=== PATIENT | female | born 1955 | race African-American/Black ===

== ENCOUNTER 2017-10-21 17:02 | Inpatient (IN) | payer MEDICARE, MEDICAID ==
[~2017-10-21 17:02] MED LIST: Heparin 10,000 UNITS/ 10 ML VIAL ONE
[2017-10-21] MEDS ORDERED: Atropine Sulfate 1 mg/10 ml Syringe ONE (17:16)
[2017-10-21] MEDS ORDERED: Calcium Gluc 4.6 MEQ/10 ML (100 MG/ML) ONE ×3 (17:24→18:04)
[2017-10-21] MEDS ORDERED: Ondansetron ODT 4 MG TAB ONE (17:30)
[2017-10-21] MEDS ORDERED: Insulin Regular 300 UNITS/3 ML VIAL ONE (17:31)
[2017-10-21] MEDS ORDERED: Dextrose 50% Abboject 50 ML SYRINGE ONE (17:31)
[2017-10-21] MEDS ORDERED: Sodium Bicarb 50 MEQ/50 ML Abboject 8.4% SYRINGE ONE (17:31)
[2017-10-21] MEDS ORDERED: Albuterol Sulfate 2.5 mg/0.5 ml Neb ONE (17:34)
[2017-10-21 17:36] LABS: Hemoglobin 12.7 g/dL (12.0-16.0); Mean Corpuscular HGB CONC 32.4 g/dL (32.0-36.0); Mean Corpuscular Hemoglobin 29.7 pg (27.0-31.0); Mean Corpuscular Volume 91.7 fl (81.0-99.0); Mean Platelet Volume 11.2 fL (7.4-10.4); Platelet Count 180 thou/uL (130-400); RBC Distribution Width 11.7 % (11.5-14.5); Red Blood Cell (RBC) Count 4.28 mill/uL (4.20-5.40); White Blood Cell (WBC) Count 12.1 thou/uL (4.8-10.8)
[2017-10-21 17:48] LABS: #Eosinphils 0.1 thou/uL (0.0-0.7); #Lymphocytes 1.6 thou/uL (1.20-3.40); #Monocytes 0.7 thou/uL (0.11-0.59); #Neutrophils 9.8 thou/uL (1.40-6.50); %Basophils 0.1 % (0.0-1.0); %Eosinophils 0.7 % (0.0-10.0); %Lymphocytes 12.9 % (21.0-51.0); %Monocytes 5.8 % (0.0-10.0); %Neutrophils 80.5 % (42.0-75.0); PLT Morphology Comment Appears Adequate; RBC Morphology Normal
[2017-10-21 17:50] LABS: Analyzer IN Cardio ER; pH (venous) 7.38 (7.35-7.45)
[2017-10-21 17:51] LABS: Actual Bicarbonate (HCO3v) 17 mEq/L (22-26); Base Excess -6.7 mEq/L (0 (+/- 2.5)); Chloride (ABG LAB) 103 mmol/L (98-106); Hematocrit-VBG 36.7 % (35-47); Hemoglobin (Hb) 11.3 g/dL (11.7-16.0); Potassium - ABG Lab 8.8 mmol/L (3.70-5.30); Sodium 131.9 mmol/L (133-146)
[2017-10-21 17:55] LABS: CKMB 0.6 ng/mL (0-6.6); Troponin I Less than 0.010 ng/mL (< 0.028)
[2017-10-21] MEDS ORDERED: Acetaminophen 325 MG TAB PO PRN (18:51)
[2017-10-21] MEDS ORDERED: Acetaminophen 650 MG Suppository PR PRN (18:51)
[2017-10-21 18:57] LABS: Albumin 3.6 g/dL (3.4-4.8)
[2017-10-21 18:58] LABS: Chloride 113 mmol/L (98-107); Sodium 138 mmol/L (136-145)
[2017-10-21 18:59] LABS: Calcium 10.3 mg/dL (7.8-10.44); Glucose 89 mg/dL (80-115)
[2017-10-21 19:00] LABS: Globulin 3.1 g/dL (2.4-3.5); Protein, Total 6.7 g/dL (6.0-8.3)
[2017-10-21 19:01] LABS: Anion Gap 16 mmol/L (10-20); Bilirubin, Total 0.3 mg/dL (0.2-1.2); Carbon Dioxide 16 mmol/L (23-31)
[2017-10-21 19:02] LABS: Alkaline Phosphatase 93 U/L (40-150)
[2017-10-21 19:03] LABS: Calc. Creatinine Clearance 0 mL/min (70-130); Estimated GFR-MDRD 20
[2017-10-21 19:04] LABS: BUN (Urea Nitrogen) 70 mg/dL (9.8-20.1)
[2017-10-21 19:05] LABS: ALT (SGPT) 19 U/L (8-55); AST (SGOT) 14 U/L (5-34); CK (CPK) 59 U/L (29-168)
[2017-10-21 19:07] LABS: Potassium 6.8 mmol/L (3.5-5.1)
[2017-10-21] MEDS ORDERED: Albuterol Sulfate 2.5 mg/3 ml Neb ONE (19:10)
[2017-10-21] MEDS ORDERED: Dextrose 5% in Water 1,000 ML IV PRN (19:16)
[2017-10-21] MEDS ORDERED: Dextrose 50% Abboject 50 ML SYRINGE SLOW IVP PRN (19:16)
[2017-10-21 19:30] LABS: Troponin I Less than 0.010 ng/mL (< 0.028)
--- NOTE | 2017-10-21 20:04 | RAD ---
AP VIEW OF THE CHEST: 10/21/17 INDICATION: Generalized weakness. COMPARISON: Prior exam dated 09/16/07. FINDINGS: There are vascular calcifications involving the aortic arch. Heart size is normal. The lungs are joaquin r. Pacer pads overlie the right chest wall. No pleural effusion or pneumothorax is evident. No defini te acute osseous abnormality is noted. IMPRESSION: No acute abnormality. POS: [facility]
--- NOTE | 2017-10-21 20:41 | HP ---
PRIMARY CARE PROVIDER: Barrera Metcalf M.D. CHIEF COMPLAINT: Generalized weakness. HISTORY OF PRESENT ILLNESS: Ms. Donahue is a pleasant 62-year-old lady who was seen at [facility] on 10/21/2017. She is accompanied by her daughter in the emergency room. She reports that she has been constipated for a few days. She also reports that she has not been eating well for the last few days. Today morning, she woke up, feeling weak all over her body. She denies any lightheadedness or, palpitations. She denies any chest pain, nausea, and vomiting. REVIEW OF SYSTEMS: The following complete review of systems was negative, unless otherwise mentioned in the HPI or below: Constitutional: Weight loss or gain, ability to conduct usual activities. Skin: Rash, itching. Eyes: Double vision, pain. ENT/Mouth: Nose bleeding, neck stiffness, pain, tenderness. Cardiovascular: Palpitations, dyspnea on exertion, orthopnea. Respiratory: Shortness of breath, wheezing, cough, hemoptysis, fever or night sweats. Gastrointestinal: Poor appetite, abdominal pain, heartburn, nausea, vomiting, constipation, or diarrhea. Genitourinary: Urgency, frequency, dysuria, nocturia. Musculoskeletal: Pain, swelling. Neurologic/Psychiatric: Anxiety, depression. Allergy/Immunologic: Skin rash, bleeding tendency. PAST MEDICAL HISTORY: Significant for diabetes mellitus, hypertension, hemorrhagic cerebrovascular accident and hepatitis C. She reports that she had a normal coronary angiogram approximately 1 year ago. PAST SURGICAL HISTORY: None. SOCIAL HISTORY: The patient denies any tobacco use, alcohol use or recreational drug use. ALLERGIES: No known drug allergies. CURRENT MEDICATIONS: Include amlodipine 10 mg daily, aspirin 325 mg daily, Coreg 25 mg 2 times a day, clonidine 0.1 mg every 6 hours as needed, furosemide 20 mg daily, potassium chloride 10 mEq daily, Budeprion SR 150 mg daily; methimazole 10 mg on alternate days, alternating with 5 mg; lisinopril/ hydrochlorothiazide 20/25 mg daily, spironolactone 50 mg daily and meloxicam 7.5 mg daily. FAMILY HISTORY: Patient denies any family history of premature coronary artery disease or renal failure. PHYSICAL EXAMINATION: GENERAL: Ms. Donahue is awake and alert, not in acute distress. VITAL SIGNS: Blood pressure is 114/45, pulse is 43. She is breathing at rate of 20 and saturating 99% on room air. She is afebrile. EYES: No scleral icterus. No clinical pallor. ENT: Moist mucosal membranes, no oropharyngeal erythema or exudates. NECK: Supple, nontender, normal range of movement, trachea is midline. RESPIRATORY: Accessory muscles of breathing are not active. Chest wall movements are symmetric bilaterally. LUNGS: Clear to auscultation without wheeze, rhonchi or crepitations. CARDIOVASCULAR: S1 and S2 are heard, regular. LUNGS: Bradycardic. Peripheral pulses are palpable. No carotid bruit, no pericardial rub. ABDOMEN: Soft, nontender, bowel sounds are heard, no hepatomegaly, no splenomegaly. NEUROLOGIC: Cranial nerves II-XII intact. Deep tendon reflexes are 2+. MUSCULOSKELETAL: Power is 5/5 in all 4 extremities. Normal range of movement at all major extremity joints. LYMPHATIC: No cervical lymphadenopathy. SKIN: No rashes or subcutaneous nodules. PSYCHIATRIC: Normal mood, normal affect. The patient is oriented to person, place, and time. LABORATORY DATA: Ms. Donahue's labs and investigations were reviewed. I reviewed her electrocardiogram, which shows sinus bradycardia, with a heart rate of 45 beats per minute. I also reviewed her chest x-ray, which does not show any pulmonary infiltrates. Through point of care testing, her potassium is 8.8. Emergency room physician reports that her creatinine is 3, but I am unable to find the document indicating this. Comprehensive metabolic profile done through lab is pending. She has leukocytosis with 12,100 white cells, of which 80% are neutrophils, normal hemoglobin and normal platelet count. ASSESSMENT AND PLAN: Ms. Donahue is a pleasant 62-year-old lady who was seen at [facility] on 10/21/2017. Her problem list includes: 1. Generalized weakness: Most likely secondary to hyperkalemia. 2. Hyperkalemia: Due to combination of factors, including poor oral intake and use of lisinopril, spironolactone and potassium supplements. Nephrology service has been consulted by emergency room physician. Arrangements are being made for placement of dialysis catheter and for emergent dialysis. Patient will be subsequently admitted to the Critical Care Unit. 3. Sinus bradycardia: Likely a combination of beta yosvany use as well as hyperkalemia: Hold beta yosvany, dialyze and monitor on telemetry. 4. Hypertension: Monitor vital signs, titrate antihypertensives as needed. 5. Diabetes mellitus. Accu-Cheks, insulin sliding scale. 6. History of hepatitis C: Stable. 7. History of hemorrhagic cerebrovascular accident. Stable, SCDs for DVT prophylaxis. Many thanks for allowing me to participate in your patient's care. Please feel free to contact me with any questions or concerns. LEVEL OF RISK: High. LEVEL OF COMPLEXITY: High. MTDD
[2017-10-21] MEDS ORDERED: Heparin 5,000 UNITS/ML VIAL SC SCH (21:00)
[2017-10-21 21:54] VITALS: BMI 31.1
[2017-10-21 22:25] LABS: Troponin I Less than 0.010 ng/mL (< 0.028)
[2017-10-21 22:42] LABS: HBSAg Index 0.21 S/CO (0-0.99); Hep B Surf Ag Non-Reactive S/CO (NonReactive)
--- NOTE | 2017-10-21 22:55 | OP ---
CHIEF COMPLAINT: Acute renal failure, in need of dialysis for hyperkalemia. SURGEON: Dr. Vidal. PROCEDURE PERFORMED: Trialysis catheter placement. PROCEDURE: After informed consent was obtained, the patient was placed in supine position. Her groi n was prepped and draped in usual fashion. Local anesthesia infiltrated subcutaneously and deep. An introducer needle was inserted into the right femoral vein with good backflow of venous blood. J-wi re threaded easily. The skin was incised with a 11 blade and a series of dilators used to enlarge th e tunnel. Then the dialysis catheter was inserted over the wire and the wire was removed. Each of t he ports was flushed with saline and clamped. The catheter was sutured in place with 3-0 nylon sutur e. Sterile bandage applied. The patient tolerated the procedure well and then will be taken to dial ysis.
--- NOTE | 2017-10-21 23:52 | CON ---
DATE OF CONSULTATION: 10/21/2017 CHIEF COMPLAINT: Acute renal failure. HISTORY: The patient is a 62-year-old female who has diabetes, was on some oral agents. She has had progressive weakness and dizziness. She was found to be severely bradycardic and had her potassium of 9.4. I was asked to see her for dialysis placement. PAST MEDICAL HISTORY: Significant for hypertension and diabetes. PAST SURGICAL HISTORY: She had a heart catheterization last year. HOME MEDICATIONS: They do no know. ALLERGIES: No known drug allergies. SOCIAL HISTORY: She lives alone. No tobacco or alcohol. No known drug allergies. PHYSICAL EXAMINATION: VITAL SIGNS: Pulse is 38, blood pressure 113/64. GENERAL: She is awake. She looks a little bit lethargic, in no apparent distress. HEENT: Otherwise, unremarkable. She is alopecic. LUNGS: Clear. HEART: Regular rate and rhythm. ABDOMEN: Morbidly obese, soft, nontender. EXTREMITIES: Unremarkable. LABORATORY AND X-RAY FINDINGS: White count 12, H and H 12 and 39, and platelet count 180. Her potas sium was 8.8. Sodium 131, chloride 103 now they did get it down to 6.8 with some fluids. Her BUN is 70 with a creatinine of 2.8, glucose is 234. ASSESSMENT: Acute renal failure with hyperkalemia. PLAN: Trialysis catheter placement for urgent dialysis.
[2017-10-22 01:20] LABS: Troponin I 0.018 ng/mL (< 0.028)
[2017-10-22] MEDS ORDERED: Sodium Chloride 0.9% 1,000 ML IV SCH (03:22)
[2017-10-22] MEDS ORDERED: Ondansetron HCl/PF 4 MG/2 ML Vial IVP PRN (03:22)
[2017-10-22] MEDS ORDERED: Ondansetron ODT 4 MG TAB SL PRN (03:22)
[2017-10-22 05:47] LABS: #Eosinphils 0.1 thou/uL (0.0-0.7); #Lymphocytes 1.9 thou/uL (1.20-3.40); #Monocytes 1.3 thou/uL (0.11-0.59); #Neutrophils 6.5 thou/uL (1.40-6.50); %Basophils 0.3 % (0.0-1.0); %Eosinophils 0.6 % (0.0-10.0); %Lymphocytes 19.4 % (21.0-51.0); %Monocytes 13.4 % (0.0-10.0); %Neutrophils 66.3 % (42.0-75.0); Hemoglobin 10.4 g/dL (12.0-16.0); Mean Corpuscular HGB CONC 33.2 g/dL (32.0-36.0); Mean Corpuscular Hemoglobin 29.9 pg (27.0-31.0); Mean Corpuscular Volume 89.9 fl (81.0-99.0); Mean Platelet Volume 11.2 fL (7.4-10.4); Platelet Count 25 thou/uL (130-400); RBC Distribution Width 11.5 % (11.5-14.5); Red Blood Cell (RBC) Count 3.47 mill/uL (4.20-5.40); White Blood Cell (WBC) Count 9.8 thou/uL (4.8-10.8)
[2017-10-22 05:49] LABS: Anion Gap 7 mmol/L (10-20); BUN (Urea Nitrogen) 27 mg/dL (9.8-20.1); Calc. Creatinine Clearance 47 mL/min (70-130); Calcium 8.8 mg/dL (7.8-10.44); Carbon Dioxide 29 mmol/L (23-31); Chloride 104 mmol/L (98-107); Estimated GFR-MDRD 35; Glucose 123 mg/dL (80-115); Sodium 136 mmol/L (136-145)
[2017-10-22 09:18] LABS: Anion Gap 12 mmol/L (10-20); BUN (Urea Nitrogen) 28 mg/dL (9.8-20.1); Calc. Creatinine Clearance 46 mL/min (70-130); Calcium 8.5 mg/dL (7.8-10.44); Carbon Dioxide 26 mmol/L (23-31); Chloride 105 mmol/L (98-107); Estimated GFR-MDRD 34; Glucose 90 mg/dL (80-115); Magnesium 1.8 mg/dL (1.6-2.6); Phosphorus 3.9 mg/dL (2.3-4.7); Sodium 138 mmol/L (136-145)
[2017-10-22 09:22] LABS: #Eosinphils 0.1 thou/uL (0.0-0.7); #Lymphocytes 1.7 thou/uL (1.20-3.40); #Monocytes 0.9 thou/uL (0.11-0.59); #Neutrophils 5.8 thou/uL (1.40-6.50); %Lymphocytes 19.8 % (21.0-51.0); %Monocytes 10.2 % (0.0-10.0); Hemoglobin 11.1 g/dL (12.0-16.0); Mean Corpuscular Hemoglobin 30.7 pg (27.0-31.0); Mean Corpuscular Volume 90.5 fl (81.0-99.0); Mean Platelet Volume 10.6 fL (7.4-10.4); PLT Morphology Comment Appears Decreased; Platelet Count 27 thou/uL (130-400); RBC Distribution Width 11.6 % (11.5-14.5); Red Blood Cell (RBC) Count 3.61 mill/uL (4.20-5.40); White Blood Cell (WBC) Count 8.4 thou/uL (4.8-10.8)
[2017-10-22] MEDS: Albuterol Sulfate 1.25 MG/3 ML NEB NEB SCH ×2 (09:25→09:26)
[2017-10-22] MEDS: Sodium Chloride 0.45% 1,000 ML IV SCH ×2 (12:04→17:10)
[2017-10-22] MEDS: HumaLOG 300 UNITS/3 ML VIAL SC PRN ×2 (12:34→21:14)
--- NOTE | 2017-10-22 12:40 | PDOC.PN ---
- Subjective Encounter Start Date: 10/22/17 Encounter Start Time: 08:40 Pt seen for followup re: thrombocytopenia. Feels better. denies chest pain, shortness of breath, fevers or chills. - Objective MAR Reviewed: Yes Vital Signs & Weight: Vital Signs (12 hours) Temp Pulse Resp Pulse Ox 10/22/17 08:00 97.8 F 69 21 H 100 10/22/17 07:00 97.8 F Most Recent Monitor Data Heart Rate from ECG 63 NIBP 116/26 NIBP BP-Mean 70 Respiration from ECG 19 SpO2 99 I&O: 10/21/17 10/22/17 10/23/17 06:59 06:59 06:59 Intake Total 1375 240 Output Total 100 Balance 1375 140 Result Diagrams: 10/22/17 08:50 10/22/17 08:50 Additional Labs: Accuchecks 10/21/17 10/21/17 22:42 19:37 POC Glucose 104 70 EKG Reviewed by me: Yes (Tele: NSR) Phys Exam - Physical Examination Obese HEENT: PERRLA, moist MMs, sclera anicteric, oral pharynx no lesions Neck: no nodes, no JVD, supple, full ROM Respiratory: no wheezing, no rales, no rhonchi, clear to auscultation bilateral Cardiovascular: RRR, no rub Gastrointestinal: soft, non-tender, no distention, positive bowel sounds Neurological: moves all 4 limbs Psychiatric: normal affect, A&O x 3 Dx/Plan (1) Thrombocytopenia Code(s): D69.6 - THROMBOCYTOPENIA, UNSPECIFIED Status: Acute Comment: Etiology unclear, HIT panel pending. No evidence of active bleeding. (2) CHINO (acute kidney injury) Code(s): N17.9 - ACUTE KIDNEY FAILURE, UNSPECIFIED Status: Acute Comment: s/ p dialysis yesterday (for hyperkalemia), improving. (3) HTN (hypertension) Code(s): I10 - ESSENTIAL (PRIMARY) HYPERTENSION Status: Chronic Comment: Monitor vital signs, titrate antihypertensives as needed. (4) DM2 (diabetes mellitus, type 2) Status: Chronic Comment: Continue accuchecks, insulin sliding scale. (5) Bradycardia Code(s): R00.1 - BRADYCARDIA, UNSPECIFIED Status: Resolved Comment: Likely due to hyperkalemia (6) Hyperkalemia Code(s): E87.5 - HYPERKALEMIA Status: Resolved Comment: s/p dialysis (7) Generalized weakness Code(s): R53.1 - WEAKNESS Status: Resolved - Plan * . Review of Systems - Review of Systems Constitutional: negative: fever, chills, sweats, weakness, malaise Respiratory: negative: Cough, Shortness of Breath, SOB with Excertion, Pleuritic Pain, Wheezing Cardiovascular: negative: chest pain, palpitations, orthopnea, paroxysmal nocturnal dyspnea, edema, light headedness Gastrointestinal: negative: Nausea, Vomiting, Abdominal Pain, Diarrhea, Constipation, Melena, Hematochezia Genitourinary: negative: Dysuria, Frequency, Incontinence, Hematuria, Retention - Medications/Allergies Allergies/Adverse Reactions: Allergies Allergy/AdvReac Type Severity Reaction Status Date / Time No Known Drug Allergies Allergy Verified 10/21/17 18:34 Medications: Current Medications Acetaminophen (Tylenol) 650 mg PO Q4H PRN PRN Reason: Headache/Fever or Pain Last Admin: 10/21/17 23:18 Dose: 650 mg Acetaminophen (Tylenol) 650 mg MI Q4H PRN PRN Reason: Headache/Fever or Pain Dextrose/Water (Dextrose 50%) 25 gm SLOW IVP PRN PRN PRN Reason: Hypoglycemia Glucagon (Glucagon) 1 mg IM PRN PRN PRN Reason: Hypoglycemia Dextrose/Water (D5w) 1,000 mls @ 0 mls/hr IV .Q0M PRN; As Directed PRN Reason: Hypoglycemia Last Admin: 10/21/17 23:55 Dose: 1,000 mls Sodium Chloride (1/2 Normal Saline) 1,000 mls @ 100 mls/hr IV .Q10H GONZALES Last Admin: 10/22/17 12:04 Dose: 1,000 mls Insulin Human Lispro (Humalog) 0 units SC .MILD SLIDING SCALE PRN PRN Reason: Mild Correctional Scale Last Admin: 10/22/17 12:34 Dose: 2 unit Sodium Chloride (Flush - Normal Saline) 10 ml IVF Q12HR GONZALES Last Admin: 10/22/17 09:00 Dose: 10 ml Sodium Chloride (Flush - Normal Saline) 10 ml IVF PRN PRN PRN Reason: Saline Flush
--- NOTE | 2017-10-22 13:06 | CON ---
DATE OF CONSULTATION: 10/21/2017 REFERRING PHYSICIAN: Dr. Resendiz. REASON FOR CONSULTATION: Hyperkalemia. REASON FOR ADMISSION: Weakness. HISTORY OF PRESENT ILLNESS: This is a 62-year-old female with a history of diabetes, hypertension, CVA, came to the hospital with weakness and found to have potassium of around 9 range, which got better to 6.8. Nephrology consulted. Plan is to have emergent dialysis. Patient complains of lot of weakness, but no nausea, vomiting, no chest pain. PAST MEDICAL HISTORY: Positive for type 2 diabetes, hypertension, CVA. PAST SURGICAL HISTORY: None. HOME MEDICATIONS: Amlodipine, aspirin, Coreg, clonidine, furosemide, potassium chloride, methimazole, lisinopril/hydrochlorothiazide, spironolactone, meloxicam. ALLERGIES: No known drug allergies. SOCIAL HISTORY: No smoking, no alcohol or illicit drug abuse. FAMILY HISTORY: No history of kidney disease. REVIEW OF SYSTEMS: The following complete review of systems was negative, unless otherwise mentioned in the HPI or below Constitutional: Weight loss or gain, ability to conduct usual activities. Skin: Rash, itching. Eyes: Double vision, pain. Ent/mouth: Nose bleeding, neck stiffness, pain, tenderness. Cardiovascular: Palpitations, dyspnea on exertion, orthopnea. Respiratory: Shortness of breath, wheezing, cough, hemoptysis, fever or night sweats. Gastrointestinal: Poor appetite, abdominal pain, heartburn, nausea,vomiting, constipation, or diarrhea. Genitourinary: Urgency, frequency, dysuria, nocturia. Musculoskeletal: Pain, swelling. Neurologic/psychiatric: Anxiety, depression. Allergy/immunologic: Skin rash, bleeding tendency. PHYSICAL EXAMINATION: GENERAL: This is a well-built female in no apparent distress. VITAL SIGNS: Temperature 97.8, pulse 65, respiratory rate 18, blood pressure 120/65. HEENT: Atraumatic, normocephalic. Oral mucosa is moist. NECK: Supple. CARDIOVASCULAR: S1 and S2 heard. Rate and rhythm regular. RESPIRATORY: Clear. ABDOMEN: Soft. MUSCULOSKELETAL: A 1+ edema. DERMATOLOGIC: No rash. NEUROLOGIC: Alert, awake. PSYCHIATRIC: Mood and affect normal. LABORATORY DATA: Hemoglobin is 10.4. Potassium was 8.8, BUN is 70, and creatinine is 2.83. ASSESSMENT AND PLAN: 1. Acute hyperkalemia, most likely from medications. Plan is to have emergent dialysis. Appreciate help from Surgery. 2. Acute kidney injury, most likely volume depletion. Agree with hydration as tolerated. 3. Anemia. 4. Edema, controlled. 5. Hypertension, stable. Plan is to have emergent dialysis, appreciate help from Surgery. We will follow. Thank you for the consult. NEVIN
--- NOTE | 2017-10-22 15:52 | CON ---
DATE OF CONSULTATION: 10/22/2017 HISTORY OF PRESENT ILLNESS: Kaylee Donahue is a 62-year-old -[place] female, who sees Morgan Becerril doctor. She is 93 kilos, presented to the ER with respiratory rate 20 and temperature 97, a pparently adequate sats, complain of being weak. She has nausea for several days. She had a BM. On arrival to the ER, EKG showed a third-degree AV block and potassium that was elevated to apparently 8.5. Primary care physician contacted dialysis and she was dialyzed yesterday. Shortly after dialys is, I was told that her third-degree AV block converted back to normal sinus rhythm. This morning, h er pulse is 68, blood pressure 116/56, sats 100% on 2 liters on 18. She denies any pain or discomf ort. She tells me that she has been feeling poorly for several days. She is a former smoker, a pack a day, quit smoking 2 years ago. She has been having some problem with her low back; in fact, she s aw her primary care doctor and was scheduled to have an MRI of her lumbar spine done today. PAST MEDICAL HISTORY: Otherwise, pertinent for diabetes, hypertension, renal failure, hepatitis C, p revious CVA with right-sided weakness. PAST SURGICAL HISTORY: Access. ALCOHOL: None. MEDICATIONS: A list of medicines from home list is unknown. Her family to bring the medicines. REVIEW OF SYSTEMS: Otherwise, 10-point negative. PHYSICAL EXAMINATION: GENERAL: She is awake, alert, responsive, in no distress. VITAL SIGNS: Sats 100% is noted on 2 liters, respirations 20, blood pressure 116/55, pulse 69 and no rmal sinus. CHEST: Decreased breath sounds without any wheezing. CARDIAC: Normal S1 and S2, no gallops. ABDOMEN: Soft. NEUROLOGIC: She is awake, alert, responsive. Paralysis of the right side, chronic. EXTREMITIES: No edema. LABORATORY DATA: A platelet count this morning is 25,000; yesterday was 180, very unusual. Addition ally, white count is 9.8, H and H 10 and 31. BUN and creatinine are 27 and 1.6, potassium is 4 follo wing 1 dialysis. Her BUN and creatinine yesterday was 70 and 2.8 respectively, suggesting mainly of a prerenal component. Hepatitis B antigen pending. IMPRESSION: 1. Admission potassium 8.8, very unusual without evidence of prerenal azotemia. 2. Chronic renal failure. 3. Cerebrovascular accident, right-sided weakness. 4. Chronic back pain. 5. Hepatitis C. 6. Former smoker. 7. Diabetes. I am surprised about the events that her potassium was 8.5 and her numbers all appear to be prerenal. I will continue hydration. She has had low back pain. She was scheduled to have an MRI done at [facility]. I suggest she be transferred out of the ICU to a monitored bed, can have an MRI at a later time. Await input from Cardiology. Pulmonary Critical care will follow while in the ICU. This is a consultation note of 70 minutes, more than 50% in direct patient care.
--- NOTE | 2017-10-22 16:51 | CON ---
DATE OF CONSULTATION: 10/22/2017 CRITICAL CARE NOTE TIME: 30 minutes. HISTORY OF PRESENT ILLNESS: Patient is an unfortunate 62-year-old woman who presented after presenting with severe weakness. The patient had been feeling weak for several days. She presented to the emergency room and was noted to be in a very slow heart rate. The patient has a previous history of a CVA. She also has a long history of hypertension. The patient denied having any chest pain. She was noted to have a very slow heart rate and admitted for further evaluation. The patient denies having any chest discomfort. PAST MEDICAL HISTORY: 1. Hypertension 2. Cerebrovascular accident. 3. Renal failure. 4. Hepatitis C. PAST SURGICAL HISTORY: Cataract surgery. SOCIAL HISTORY: Former smoker. ALLERGIES: No known drug allergies. MEDICATIONS ON ADMISSION: Norvasc 10 daily, aspirin tablet every day, Coreg 25 b.i.d., potassium 10 daily, lisinopril 20/25 daily, spironolactone 1 tablet daily, meloxicam, Lasix, and clonidine. PHYSICAL EXAMINATION: GENERAL: This is an ill-appearing woman. VITAL SIGNS: Blood pressure was 116/26. NECK: Full. LUNGS: Clear to auscultation. HEART: Regular rate and rhythm, normal S1, S2, no murmurs. ABDOMEN: Nondistended. EXTREMITIES: Showed trace edema. LABORATORY DATA AND IMAGING DATA: White blood cell count 8.4, hemoglobin 11.1, hematocrit 32.6, and platelets are 27. Her initial laboratory results; sodium was 138, potassium was 8.8, chloride 113, BUN 70, creatinine is 0.283, troponin less than 0.01. EKG revealed a junctional escape rhythm with rate of approximately 40. IMPRESSION: 1. Sinus arrest with junctional escape rhythm. 2. Hyperkalemia. 3. Renal failure. 4. History of cerebrovascular accident. 5. History of hepatitis C. 6. Thrombocytopenia. This patient presented with sinus arrest with a junctional escape rhythm due to severe hyperkalemia. From a cardiac standpoint, the patient underwent emergent dialysis. She is now back in sinus rhythm. We will check the patient's echocardiogram. The patient will need to avoid taking AIRAM inhibitor therapy and spironolactone. We will readjust her antihypertensive medications. We will check the patient's echocardiogram. We will follow this patient with you through her hospitalization. Critical care note 30 minutes. MTDD
--- NOTE | 2017-10-22 19:50 | PRG ---
DATE OF SERVICE: 10/22/2017 NEPHROLOGY PROGRESS NOTE SUBJECTIVE: Patient was seen and examined at bedside and overnight events noted. Patient denies any shortness of breath or chest pain or palpitation. No history of nausea or vomiting or diarrhea or f ever or chills or cramps. OBJECTIVE: GENERAL: This is an elderly female in no apparent distress. VITAL SIGNS: Temperature 98.1, pulse 72, respiratory rate 18, blood pressure 120/71. HEENT: Atraumatic, normocephalic. Oral mucosa is moist. NECK: Supple. CARDIOVASCULAR: S1, S2 heard. Rate and rhythm regular. RESPIRATORY: Clear to auscultation. GASTROINTESTINAL: Abdomen is soft. MUSCULOSKELETAL: No tenderness. No edema. DERMATOLOGIC: No skin rash. NEUROLOGIC: Alert and awake and oriented x3. No focal neurologic deficits. Moving all the extremiti es. PSYCHIATRIC: Mood and affect normal. LABORATORY DATA: Potassium is 4.0, BUN 27, creatinine is 1.76. ASSESSMENT AND PLAN: 1. Acute hyperkalemia, much better with dialysis. Stop potassium supplements and diuretics. 2. Acute kidney injury. Agree with IV fluids. Would recommend NS if possible. Creatinine is much better after dialysis. 3. Anemia, rule out any bleed. 4. Edema, controlled. 5. Hypertension, stable. 6. No acute indication for dialysis today. We will continue to monitor and remove dialysis catheter if no more dialysis needed and avoid nephrotoxins at this point. Continue supportive care. Her debbie arzate creatinine is around 1.5. We will follow.
[2017-10-23] MEDS: Sodium Chloride 0.45% 1,000 ML IV SCH (04:55)
[2017-10-23 05:34] LABS: #Eosinphils 0.1 thou/uL (0.0-0.7); #Lymphocytes 1.6 thou/uL (1.20-3.40); #Monocytes 0.7 thou/uL (0.11-0.59); #Neutrophils 3.2 thou/uL (1.40-6.50); %Basophils 0.2 % (0.0-1.0); %Eosinophils 2.4 % (0.0-10.0); %Lymphocytes 28.1 % (21.0-51.0); %Monocytes 11.9 % (0.0-10.0); %Neutrophils 57.5 % (42.0-75.0); Hemoglobin 9.9 g/dL (12.0-16.0); Mean Corpuscular HGB CONC 32.6 g/dL (32.0-36.0); Mean Corpuscular Volume 92.2 fl (81.0-99.0); Mean Platelet Volume 11.7 fL (7.4-10.4); Platelet Count 30 thou/uL (130-400); RBC Distribution Width 11.5 % (11.5-14.5); Red Blood Cell (RBC) Count 3.29 mill/uL (4.20-5.40); White Blood Cell (WBC) Count 5.6 thou/uL (4.8-10.8)
[2017-10-23 05:45] LABS: Anion Gap 11 mmol/L (10-20); BUN (Urea Nitrogen) 28 mg/dL (9.8-20.1); Calc. Creatinine Clearance 51 mL/min (70-130); Calcium 8.3 mg/dL (7.8-10.44); Carbon Dioxide 23 mmol/L (23-31); Chloride 107 mmol/L (98-107); Estimated GFR-MDRD 39; Glucose 83 mg/dL (80-115); Potassium 4.9 mmol/L (3.5-5.1); Sodium 136 mmol/L (136-145)
--- NOTE | 2017-10-23 11:35 | PRG ---
DATE OF SERVICE: 10/23/2017 SUBJECTIVE: This morning, awake, responsive, in no distress. OBJECTIVE: VITAL SIGNS: Blood pressure is 121/45, pulse 58, and respirations 18. CHEST: Reveal decreased breath sounds, no wheezing. CARDIAC: Normal S1 and S2, no gallops. ABDOMEN: Soft, no masses. LABORATORY DATA: White count 5.6, H and H 9 and 30, and platelet count is low at 30,000. Creatinine 1.6, BUN is 28. IMPRESSION: 1. Status post complete heart block with a normal ejection fraction. 2. Mild renal failure with a GFR of 39, creatinine 1.62, normal potassium. 3. Emergency dialysis for hyperkalemia. Therefore, hepatitis C probably accounting for the chronic thrombocytopenia. PLAN: At this stage, nothing additional to offer. Continue aggressive PT. She can be probably dahl sferred out of the ICU.
--- NOTE | 2017-10-23 11:36 | PRG ---
DATE OF SERVICE: 10/23/2017 NEPHROLOGY PROGRESS NOTE SUBJECTIVE: Patient was seen and examined at bedside and overnight events noted. Patient denies any shortness of breath or chest pain or palpitation. No history of nausea or vomiting or diarrhea or f ever or chills or cramps. OBJECTIVE: GENERAL: This is an elderly female in no apparent distress. VITAL SIGNS: Temperature 98.4, pulse 83, respiratory rate 16, blood pressure 133/70. HEENT: Atraumatic, normocephalic. Oral mucosa is moist. NECK: Supple. CARDIOVASCULAR: S1, S2 heard. Rate and rhythm regular. RESPIRATORY: Clear to auscultation. GASTROINTESTINAL: Abdomen is soft. MUSCULOSKELETAL: No tenderness. No edema. DERMATOLOGIC: No skin rash. NEUROLOGIC: Alert and awake and oriented x3. No focal neurologic deficits. Moving all the extremiti es. PSYCHIATRIC: Mood and affect normal. LABORATORY DATA: Potassium is 4.9, BUN 28, creatinine is 1.6. ASSESSMENT AND PLAN: 1. Acute kidney injury. Renal function is better. 2. Chronic kidney stage III. 3. Acute hyperkalemia, much better. 4. Anemia. 5. Edema. 6. Hypertension. Overall, labs are stable, okay to remove dialysis catheter. Seems urine output is better. No need f or dialysis.
--- NOTE | 2017-10-23 14:29 | PDOC.PN ---
- Subjective Encounter Start Date: 10/23/17 Encounter Start Time: 12:10 Subjective: awake, sitting in chair -: no sob or palp -: no bleeding per rectum or urine - Objective MAR Reviewed: Yes Vital Signs & Weight: Vital Signs (12 hours) Temp Pulse Pulse Pulse Resp BP BP 10/23/17 12:00 98.7 F 10/23/17 10:07 83 76 113/70 139/61 10/23/17 08:00 98.4 F 68 16 10/23/17 07:09 10/23/17 04:00 98.3 F Pulse Ox Pulse Ox Pulse Ox 10/23/17 12:00 10/23/17 10:07 99 99 10/23/17 08:00 99 10/23/17 07:09 98 10/23/17 04:00 Most Recent Monitor Data Heart Rate from ECG 75 NIBP 123/59 NIBP BP-Mean 83 Respiration from ECG 17 SpO2 100 I&O: 10/22/17 10/23/17 10/24/17 06:59 06:59 06:59 Intake Total 1375 1667 640 Output Total 1200 500 Balance 1375 467 140 Result Diagrams: 10/23/17 05:08 10/23/17 05:08 Additional Labs: Accuchecks 10/23/17 10/22/17 10/22/17 12:18 21:14 17:11 POC Glucose 139 H 214 H 92 Phys Exam - Physical Examination HEENT: PERRLA, moist MMs Neck: no JVD, supple Respiratory: no wheezing, no rales Cardiovascular: RRR, no significant murmur Gastrointestinal: soft, non-tender, positive bowel sounds Musculoskeletal: no edema, pulses present Neurological: moves all 4 limbs h/o cva with mild right hemiparesis with strength 4/5 Psychiatric: normal affect, A&O x 3 Dx/Plan (1) CHINO (acute kidney injury) Code(s): N17.9 - ACUTE KIDNEY FAILURE, UNSPECIFIED Status: Acute (2) Thrombocytopenia Code(s): D69.6 - THROMBOCYTOPENIA, UNSPECIFIED Status: Acute Comment: Etiology unclear, HIT panel pending. No evidence of active bleeding. (3) H/O: CVA (cerebrovascular accident) Code(s): Z86.73 - PRSNL HX OF TIA (TIA), AND CEREB INFRC W/O RESID DEFICITS Status: Chronic Comment: with very mild right hemiparesis (4) Chronic anemia Code(s): D64.9 - ANEMIA, UNSPECIFIED Status: Chronic (5) Hyperthyroidism Code(s): E05.90 - THYROTOXICOSIS, UNSP WITHOUT THYROTOXIC CRISIS OR STORM Status: Chronic Comment: on methimazole (6) DM2 (diabetes mellitus, type 2) Status: Chronic Qualifiers: Diabetes mellitus manager long term care insulin use: without manager long term care use Diabetes mellitus complication status: with unspecified complications Qualified Code(s) : E11.8 - Type 2 diabetes mellitus with unspecified complications Comment: Continue accuchecks, insulin sliding scale. (7) HTN (hypertension) Code(s): I10 - ESSENTIAL (PRIMARY) HYPERTENSION Status: Chronic Qualifiers: Hypertension type: essential hypertension Qualified Code(s): I10 - Essential (primary) hypertension Comment: Monitor vital signs, titrate antihypertensives as needed. (8) Generalized weakness Code(s): R53.1 - WEAKNESS Status: Resolved (9) Hyperkalemia Code(s): E87.5 - HYPERKALEMIA Status: Resolved - Plan renal function is holding up, off HD -: strict I/O, electrolytes are stable -: tx to tele -: platelets were normal on admission but dropped soon after ?HIT/auto imm -: ef is 60%, reduce iv fluids, watch for bleeding * . Review of Systems - Medications/Allergies Allergies/Adverse Reactions: Allergies Allergy/AdvReac Type Severity Reaction Status Date / Time No Known Drug Allergies Allergy Verified 10/21/17 18:34 Medications: Current Medications Acetaminophen (Tylenol) 650 mg PO Q4H PRN PRN Reason: Headache/Fever or Pain Last Admin: 10/21/17 23:18 Dose: 650 mg Acetaminophen (Tylenol) 650 mg [place] Q4H PRN PRN Reason: Headache/Fever or Pain Dextrose/Water (Dextrose 50%) 25 gm SLOW IVP PRN PRN PRN Reason: Hypoglycemia Glucagon (Glucagon) 1 mg IM PRN PRN PRN Reason: Hypoglycemia Dextrose/Water (D5w) 1,000 mls @ 0 mls/hr IV .Q0M PRN; As Directed PRN Reason: Hypoglycemia Last Admin: 10/21/17 23:55 Dose: 1,000 mls Sodium Chloride (1/2 Normal Saline) 1,000 mls @ 100 mls/hr IV .Q10H [facility] Last Admin: 10/23/17 04:55 Dose: 1,000 mls Insulin Human Lispro (Humalog) 0 units SC .MILD SLIDING SCALE PRN PRN Reason: Mild Correctional Scale Last Admin: 10/22/17 21:14 Dose: 3 unit Sodium Chloride (Flush - Normal Saline) 10 ml IVF Q12HR [facility] Last Admin: 10/23/17 08:56 Dose: 10 ml Sodium Chloride (Flush - Normal Saline) 10 ml IVF PRN PRN PRN Reason: Saline Flush
--- NOTE | 2017-10-23 14:53 | CON ---
DATE OF CONSULTATION: 10/23/2017 REASON FOR CONSULTATION: Acute thrombocytopenia. HISTORY OF PRESENT ILLNESS: Ms. Donahue is a pleasant 62-year-old -[place] female, who pres ented to the emergency room with complaint of weakness. Chemistry drawn in the emergency room showed a potassium of 8.8. She had a white count of 12.1, hemoglobin of 12.7, and a platelet count of 180, 000. She was admitted for hyperkalemia and underwent emergent dialysis catheter placement and hemodi alysis. Overnight, her platelet count dropped from 180,000-25,000 and has improved today slightly to 30,000. She had no issues with bleeding. She has no history of hematological disorder. She likely did receive heparin with dialysis. She states that she is unaware of any heparin products she recei andres in the past. Her last hospital admission was in 2006. Today, her dialysis catheter has been rem marlen. Her potassium is now 4.9, and there is no evidence that she will be dialyzed again. She does have a history of hepatitis C, but no known liver disease or cirrhosis. LFTs are normal. We were as ked to see the patient regarding her acute drop in platelets. PAST MEDICAL HISTORY: 1. Diabetes mellitus, type 2. 2. Hypertension. 3. History of cerebrovascular accident. 4. Coronary artery disease. 5. Hepatitis C. PAST SURGICAL HISTORY: Dialysis catheter access. ALLERGIES: No known drug allergies. HOME MEDICATIONS: Unknown. FAMILY HISTORY: No history of hematological disorder or known cancers. SOCIAL HISTORY: No history of alcohol, tobacco, or illicit drug use. REVIEW OF SYSTEMS: Constitutional: Denies fever, chills, night sweats, recent weight loss or gain. Eyes: No blurred or double vision. ENT: No pain, hoarseness, sore throat, or dysphagia. Cardiova scular: No chest pain, palpitations, or syncope. Respiratory: No shortness of breath, dyspnea on e xertion, or orthopnea. Gastrointestinal: No nausea, vomiting, diarrhea, constipation or abdominal p ain. Genitourinary: No dysuria or hematuria. Musculoskeletal: No joint or back pain. Skin: No r eliazar or pruritus. Hematologic: No bleeding, bruising, or clotting. Neurologic: Positive for weakne ss. No headache, numbness, tingling, or seizure activity. Psychiatric: No anxiety or depression. PHYSICAL EXAMINATION: VITAL SIGNS: Temperature is 98.7, pulse is 75, respiratory rate 17, BP is 123/59. GENERAL: This is a well-developed, well-nourished female, in no acute distress. HEENT: Normocephalic, atraumatic. Pupils equal and reactive to light. NECK: Supple. CARDIOVASCULAR: Regular rate and rhythm. LUNGS: Clear. ABDOMEN: Distended, nontender, bowel sounds are positive. EXTREMITIES: No clubbing, cyanosis, or edema. SKIN: No rash. HEMATOLOGIC: No petechia or purpura. NEUROLOGICAL: Nonfocal. PSYCHIATRIC: The patient is alert and oriented and appropriate. PERTINENT LABORATORY AND X-RAYS: Current WBCs are 5.6, hemoglobin 9.9, hematocrit 30.4, platelet cou nt is 30,000. She has got 57% neutrophils, 28% lymphocytes, 12% monocytes. Sodium is 136, potassium 4.9, chloride 107, CO2 is 23, BUN is 28, creatinine 1.62, calcium is 8.3, total bilirubin is 0.3, T is 14, ALT is 19, alkaline phosphatase is 93. Troponin is negative. Serum total protein 6.7, albu min 3.6, globulin 3.1. Hepatitis B antigen is nonreactive. Brain CT and chest x-ray are within norm al limits. IMPRESSION: 1. Acute thrombocytopenia. 2. Hyperkalemia, improved with dialysis. DISCUSSION: The patient's low platelet count is unlikely due to heparin-induced thrombocytopenia as has happened within 24 hours of dialysis; however, heparin assay tests have been sent and are current ly pending. There is no evidence of a medication-induced thrombocytopenia. Of course, I do not know her home medications and I do not have a prior CBC. This case has been discussed with Dr. Saldana and the peripheral smear has been reviewed. We recommend just monitoring the CBC over the next few d ays with likely improvement in her platelet count. Thank you for the consult.
[2017-10-24 05:52] LABS: #Eosinphils 0.2 thou/uL (0.0-0.7); #Lymphocytes 2.4 thou/uL (1.20-3.40); #Monocytes 0.8 thou/uL (0.11-0.59); #Neutrophils 3.8 thou/uL (1.40-6.50); %Basophils 0.3 % (0.0-1.0); %Eosinophils 2.9 % (0.0-10.0); %Lymphocytes 32.7 % (21.0-51.0); %Monocytes 11.3 % (0.0-10.0); %Neutrophils 52.8 % (42.0-75.0); Hemoglobin 10.6 g/dL (12.0-16.0); Mean Corpuscular HGB CONC 32.3 g/dL (32.0-36.0); Mean Corpuscular Hemoglobin 29.9 pg (27.0-31.0); Mean Corpuscular Volume 92.7 fl (81.0-99.0); Mean Platelet Volume 11.1 fL (7.4-10.4); Platelet Count 52 thou/uL (130-400); RBC Distribution Width 11.6 % (11.5-14.5); Red Blood Cell (RBC) Count 3.54 mill/uL (4.20-5.40); White Blood Cell (WBC) Count 7.2 thou/uL (4.8-10.8)
[2017-10-24 06:06] LABS: Anion Gap 12 mmol/L (10-20); BUN (Urea Nitrogen) 19 mg/dL (9.8-20.1); Calc. Creatinine Clearance 67 mL/min (70-130); Carbon Dioxide 22 mmol/L (23-31); Chloride 108 mmol/L (98-107); Estimated GFR-MDRD 53; Glucose 97 mg/dL (80-115); Sodium 137 mmol/L (136-145)
--- NOTE | 2017-10-24 09:41 | PDOC.CTH ---
<JefferyJeanette hernandez - Last Filed: 10/24/17 15:57> Cardiology Progress Note - Subjective Awake, states is feeling good. Denies chest pain or shortness of breath. Working with PT. - Objective Vital Signs Temp Pulse Resp BP Pulse Ox 10/24/17 08:22 98.3 F 78 16 142/65 H 99 10/24/17 05:00 98.1 F 73 15 126/62 98 10/23/17 10/24/17 10/25/17 06:59 06:59 06:59 Intake Total 1667 880 Output Total 1200 1600 Balance 467 -720 - Physical Examination General/Neuro: alert & oriented x3, NAD Neck: no JVD present Lungs: CTA Heart: RRR Abdomen: no HSM, NT/ND, soft Other PE findings: Mild right hemiparesis - Telemetry Telemetry Rhythm: SR 60s-70s - Labs Result Diagrams: 10/24/17 05:03 10/24/17 05:03 Troponin/CKMB CK-MB (CK-2) 0.6 ng/mL (0-6.6) 10/21/17 17:25 Troponin I 0.018 ng/mL (< 0.028) 10/22/17 00:39 - Assessment/Plan 1. S/P CHB 2/2 severe hyperkalemia-K+ 8.8, emergent HD, K+ 5.0 today. Now SR HR 60s-70s, continue to hold potassium supplement 2. CHINO-resolving, creat now 1.24, followed by Dr. Cardoso 3. Acute thrombocytopenia-initial plt count 180, down as low as 25, 52 today, unknown etiology. Followed by Oncology. HIT panel pending, no signs of active bleeding 4. Hx of CVA-mild right hemiparesis 5. HTN-stable on current regimen <Devon Eddy - Last Filed: 10/24/17 16:12> Cardiology Progress Note - Objective Vital Signs Temp Pulse Resp BP Pulse Ox 10/24/17 12:02 98.1 F 76 16 142/67 H 98 10/24/17 11:18 98.3 F 78 16 99 10/24/17 08:22 98.3 F 78 16 142/65 H 99 10/24/17 05:00 98.1 F 73 15 126/62 98 10/23/17 10/24/17 10/25/17 06:59 06:59 06:59 Intake Total 1667 880 Output Total 1200 1600 Balance 467 -720 - Labs Result Diagrams: 10/24/17 05:03 10/24/17 05:03 Troponin/CKMB CK-MB (CK-2) 0.6 ng/mL (0-6.6) 10/21/17 17:25 Troponin I 0.018 ng/mL (< 0.028) 10/22/17 00:39 Attending Addendum - Attending Addendum Date/Time: 10/24/17 1612 I personally evaluated the patient and discussed the management with Jeanette Jeffery NP. I agree with the History, Examination, Assessment and Plan documented above with any addition or exceptions noted below.
--- NOTE | 2017-10-24 11:14 | PDOC.PN ---
- Subjective Encounter Start Date: 10/24/17 Encounter Start Time: 11:19 Subjective: No new complaints -: No acute events overnight. - Objective MAR Reviewed: Yes Vital Signs & Weight: Vital Signs (12 hours) Temp Pulse Resp BP Pulse Ox 10/24/17 08:22 98.3 F 78 16 142/65 H 99 10/24/17 05:00 98.1 F 73 15 126/62 98 Most Recent Monitor Data Heart Rate from ECG 75 NIBP 123/59 NIBP BP-Mean 83 Respiration from ECG 17 SpO2 100 I&O: 10/23/17 10/24/17 10/25/17 06:59 06:59 06:59 Intake Total 1667 880 Output Total 1200 1600 Balance 467 -720 Result Diagrams: 10/24/17 05:03 10/24/17 05:03 Additional Labs: Accuchecks 10/24/17 10/23/17 10/23/17 06:24 20:56 17:10 POC Glucose 109 130 H 110 10/23/17 12:18 POC Glucose 139 H Phys Exam - Physical Examination Constitutional: NAD HEENT: PERRLA, moist MMs, sclera anicteric, oral pharynx no lesions Neck: no JVD, supple, full ROM Respiratory: no wheezing, no rales, no rhonchi, clear to auscultation bilateral Cardiovascular: RRR, no significant murmur, no rub Gastrointestinal: soft, non-tender, no distention, positive bowel sounds Musculoskeletal: no edema, pulses present Residual R hemiparesis. Psychiatric: normal affect, A&O x 3 Skin: no rash, normal turgor Dx/Plan (1) CHINO (acute kidney injury) Code(s): N17.9 - ACUTE KIDNEY FAILURE, UNSPECIFIED Status: Acute Comment: Creatinine continues to inprove. Will monitor. (2) Thrombocytopenia Code(s): D69.6 - THROMBOCYTOPENIA, UNSPECIFIED Status: Acute Comment: Improving. Etiology unclear, ?? ANKIT. HIT panel pending. No evidence of active bleeding. (3) DM2 (diabetes mellitus, type 2) Status: Chronic Qualifiers: Diabetes mellitus bed bug exterminator insulin use: without usp use Diabetes mellitus complication status: with unspecified complications Qualified Code(s) : E11.8 - Type 2 diabetes mellitus with unspecified complications Comment: Controlled, at goal. Continue accuchecks, insulin sliding scale. (4) H/O: CVA (cerebrovascular accident) Code(s): Z86.73 - PRSNL HX OF TIA (TIA), AND CEREB INFRC W/O RESID DEFICITS Status: Chronic Comment: Stable. She has residual right hemiparesis (5) HTN (hypertension) Code(s): I10 - ESSENTIAL (PRIMARY) HYPERTENSION Status: Chronic Qualifiers: Hypertension type: essential hypertension Qualified Code(s): I10 - Essential (primary) hypertension Comment: Controlled. (6) Hyperthyroidism Code(s): E05.90 - THYROTOXICOSIS, UNSP WITHOUT THYROTOXIC CRISIS OR STORM Status: Chronic Comment: On methimazole at home. medications being held. (7) Generalized weakness Code(s): R53.1 - WEAKNESS Status: Resolved Comment: Continue PT (8) Hyperkalemia Code(s): E87.5 - HYPERKALEMIA Status: Resolved - Plan cont current plan of care, PT/OT, DVT proph w/SCDs * . Review of Systems - Medications/Allergies Allergies/Adverse Reactions: Allergies Allergy/AdvReac Type Severity Reaction Status Date / Time No Known Drug Allergies Allergy Verified 10/21/17 18:34 Medications: Current Medications Acetaminophen (Tylenol) 650 mg PO Q4H PRN PRN Reason: Headache/Fever or Pain Last Admin: 10/21/17 23:18 Dose: 650 mg Acetaminophen (Tylenol) [address] Q4H PRN PRN Reason: Headache/Fever or Pain Dextrose/Water (Dextrose 50%) 25 gm SLOW IVP PRN PRN PRN Reason: Hypoglycemia Glucagon (Glucagon) 1 mg IM PRN PRN PRN Reason: Hypoglycemia Dextrose/Water (D5w) 1,000 mls @ 0 mls/hr IV .Q0M PRN; As Directed PRN Reason: Hypoglycemia Last Admin: 10/21/17 23:55 Dose: 1,000 mls Insulin Human Lispro (Humalog) 0 units SC .MILD SLIDING SCALE PRN PRN Reason: Mild Correctional Scale Last Admin: 10/22/17 21:14 Dose: 3 unit Sodium Chloride (Flush - Normal Saline) 10 ml IVF Q12HR [facility] Last Admin: 10/24/17 08:24 Dose: 10 ml Sodium Chloride (Flush - Normal Saline) 10 ml IVF PRN PRN PRN Reason: Saline Flush Last Admin: 10/23/17 20:31 Dose: 10 ml
[2017-10-24] MEDS ORDERED: Methimazole 10 MG TAB PO SCH (15:00)
[2017-10-24] MEDS: Carvedilol 25 MG TAB PO SCH (16:14)
--- NOTE | 2017-10-24 18:12 | PRG ---
DATE OF SERVICE: 10/24/2017 SUBJECTIVE: Patient was seen and examined at bedside and overnight events noted. Patient denies any shortness of breath or chest pain or palpitation. No history of nausea or vomiting or diarrhea or f ever or chills or cramps. OBJECTIVE: GENERAL: This is a well-built female, in no acute distress. VITAL SIGNS: Temperature 98.3, pulse 70, respiratory rate 18, blood pressure 145/66. HEENT: Atraumatic, normocephalic, oral mucosa is moist NECK: Supple. CARDIOVASCULAR: S1, S2 heard, rate and rhythm regular. RESPIRATORY: Clear to auscultation. GASTROINTESTINAL: Abdomen is soft. MUSCULOSKELETAL: No tenderness, no edema. DERMATOLOGIC: No skin rash. NEUROLOGIC: Alert and awake and oriented x3, no focal neurologic deficits. Moving all the extremiti es. PSYCHIATRIC: Mood and affect normal. LABORATORY DATA: Potassium is 5.0, BUN is 90, and creatinine is 1.2. ASSESSMENT AND PLAN: 1. Acute kidney injury. Renal function is better. 2. Hyperkalemia, better. 3. Acidosis, stable. 4. Edema, controlled. 5. Hypertension, stable. 6. Hold potassium. Limit potassium in the diet and we will follow. Avoid nephrotoxins.
[2017-10-24 20:08] LABS: Heparin-Induced Ab (HITA) Negative (.)
[2017-10-24] MEDS ORDERED: Amitriptyline HCl 100 MG TAB PO SCH (21:00)
[2017-10-24] MEDS: traMADol HCl 50 MG TAB PO SCH (21:05)
[2017-10-24] MEDS: tiZANidine HCl 4 MG TAB PO SCH (21:05)
[2017-10-25 05:43] LABS: #Eosinphils 0.1 thou/uL (0.0-0.7); #Lymphocytes 1.7 thou/uL (1.20-3.40); #Monocytes 0.5 thou/uL (0.11-0.59); #Neutrophils 2.3 thou/uL (1.40-6.50); %Basophils 0.2 % (0.0-1.0); %Eosinophils 2.4 % (0.0-10.0); %Lymphocytes 37.2 % (21.0-51.0); %Monocytes 10.5 % (0.0-10.0); %Neutrophils 49.7 % (42.0-75.0); Hemoglobin 9.9 g/dL (12.0-16.0); Mean Corpuscular HGB CONC 32.6 g/dL (32.0-36.0); Mean Platelet Volume 10.6 fL (7.4-10.4); Platelet Count 45 thou/uL (130-400); RBC Distribution Width 11.3 % (11.5-14.5); White Blood Cell (WBC) Count 4.5 thou/uL (4.8-10.8)
[2017-10-25 05:48] LABS: Anion Gap 10 mmol/L (10-20); BUN (Urea Nitrogen) 20 mg/dL (9.8-20.1); Calc. Creatinine Clearance 68 mL/min (70-130); Calcium 9.2 mg/dL (7.8-10.44); Carbon Dioxide 24 mmol/L (23-31); Chloride 110 mmol/L (98-107); Estimated GFR-MDRD 53; Glucose 96 mg/dL (80-115); Sodium 139 mmol/L (136-145)
[2017-10-25 07:30] VITALS: TEMP 98.6
[2017-10-25 08:30] VITALS: BP 145/67
[2017-10-25] MEDS: Carvedilol 25 MG TAB PO SCH (08:45)
[2017-10-25] MEDS: tiZANidine HCl 4 MG TAB PO SCH (08:45)
[2017-10-25] MEDS: traMADol HCl 50 MG TAB PO SCH (08:45)
[2017-10-25] MEDS ORDERED: Bupropion 150 MG SR TAB PO SCH (09:00)
[2017-10-25] MEDS ORDERED: Aspirin 81 mg Enteric Coated Tablet PO SCH (09:00)
--- NOTE | 2017-10-25 09:10 | PDOC.CTH ---
<Jeanette Jeffery - Last Filed: 10/25/17 13:00> Cardiology Progress Note - Subjective Awake, states is feeling good and ready to go home. Denies overnight events. Denies chest pain, shortness of breath. Has already worked with PT this morning , tolerated activity well. Questions asked and answered re: importance of limiting potassium in diet, nurse asked to provide patient with education. - Objective Vital Signs Temp Pulse Resp BP BP Pulse Ox 10/25/17 08:05 98.6 F 71 20 145/67 H 100 10/25/17 04:00 98.6 F 67 18 128/60 96 10/25/17 00:24 98 10/25/17 00:00 98.4 F 67 18 118/58 L 99 10/24/17 10/25/17 10/26/17 06:59 06:59 06:59 Intake Total 880 580 Output Total 1600 0 Balance -720 -1470 - Physical Examination General/Neuro: alert & oriented x3, NAD Neck: no JVD present (supple) Lungs: CTA, unlabored respirations Heart: RRR Abdomen: NT/ND, soft - Telemetry Telemetry Rhythm: SR 60s-80s - Labs Result Diagrams: 10/25/17 05:19 10/25/17 05:19 Troponin/CKMB CK-MB (CK-2) 0.6 ng/mL (0-6.6) 10/21/17 17:25 Troponin I 0.018 ng/mL (< 0.028) 10/22/17 00:39 - Assessment/Plan 1. S/P CHB 2/2 severe hyperkalemia-K+ 8.8, emergent HD, K+ 5.0 today. Now SR HR 60s-70s, continue to hold potassium supplement, dietary sources. Provided with patient education re: low potassium diet. 2. CHINO-resolving, creat now 1.24, followed by Dr. Cardoso. 3. Acute thrombocytopenia-initial plt count 180, down as low as 25, 45 today, unknown etiology. Followed by Oncology. HIT panel pending, no signs of active bleeding 4. Hx of CVA-mild right hemiparesis 5. HTN-stable on current regimen Okay for discharge home, follow-up with Dr. Matson in 10 days. <Devon Eddy - Last Filed: 10/25/17 15:53> Cardiology Progress Note - Objective Vital Signs Temp Pulse Resp BP BP Pulse Ox 10/25/17 08:05 98.6 F 71 20 145/67 H 100 10/25/17 04:00 98.6 F 67 18 128/60 96 10/24/17 10/25/17 10/26/17 06:59 06:59 06:59 Intake Total 880 580 Output Total 1600 2050 Balance -720 -1470 - Labs Result Diagrams: 10/25/17 05:19 10/25/17 05:19 Troponin/CKMB CK-MB (CK-2) 0.6 ng/mL (0-6.6) 10/21/17 17:25 Troponin I 0.018 ng/mL (< 0.028) 10/22/17 00:39 Attending Addendum - Attending Addendum Date/Time: 10/25/17 6018 I personally evaluated the patient and discussed the management with Dr. Jeanette Jeffery VIDEO SYSTEM REPAIRER I agree with the History, Examination, Assessment and Plan documented above with any addition or exceptions noted below.
--- NOTE | 2017-10-25 13:15 | PRG ---
DATE OF SERVICE: 10/25/2017 NEPHROLOGY PROGRESS NOTE SUBJECTIVE: Patient was seen and examined at bedside and overnight events noted. Patient denies any shortness of breath or chest pain or palpitation. No history of nausea or vomiting or diarrhea or f ever or chills or cramps. OBJECTIVE: GENERAL: This is an elderly female in no apparent distress. VITAL SIGNS: Temperature 98.6, pulse 60, respiratory rate 18, blood pressure 128/60. HEENT: Atraumatic, normocephalic. Oral mucosa is moist. NECK: Supple. CARDIOVASCULAR: S1, S2 heard. Rate and rhythm regular. RESPIRATORY: Clear to auscultation. GASTROINTESTINAL: Abdomen is soft. MUSCULOSKELETAL: No tenderness. No edema. DERMATOLOGIC: No skin rash. NEUROLOGIC: Alert and awake and oriented x3. No focal neurologic deficits. Moving all the extremiti es. PSYCHIATRIC: Mood and affect normal. LABORATORY DATA: Potassium is 5.0, BUN 70, creatinine 1.23. ASSESSMENT AND PLAN: 1. Acute kidney injury. Creatinine is much better. 2. Chronic kidney disease stage 3. Need follow up as outpatient. 3. Hyperkalemia, much better. The patient was advised to limit potassium. 4. Edema, controlled. 5. Hypertension, stable. 6. Cautious administration of potassium and potassium sparing diuretics in the future including NSAI Ds. Family was consulted. Patient was advised to limit fluid intake and follow up with the clinic i n 2 weeks to monitor the potassium and renal function post-CHINO, we will follow dialysis catheter and remove it.
[2017-10-25] MEDS ORDERED: Methimazole 5 MG TAB PO SCH (15:00)
--- NOTE | 2017-10-25 20:29 | DIS ---
DATE OF ADMISSION: 10/21/2017 DATE OF DISCHARGE: 10/25/2017 DISCHARGE DIAGNOSES: Acute kidney injury, thrombocytopenia, diabetes mellitus type 2, hyperkalemia r equiring hemodialysis, history of cerebrovascular accident with residual right hemiparesis, hypertens ion, hypothyroidism, generalized weakness. HISTORY OF PRESENT ILLNESS/HOSPITAL COURSE: Ms. Donahue is a 62-year-old lady who was brought by he r daughter to the emergency room on 10/21/2017. She presented with constipation for a few days and p oor appetite, and on the day of admission, she woke up with generalized weakness. She denied lighthe adedness, palpitations, chest pain, nausea, or vomiting. Her labs showed sinus bradycardia with a he art rate of 45 beats per minute. Chest x-ray did not show any pulmonary infiltrates. Her potassium was 8.8, creatinine was 3. Emergency room physician immediately called Nephrology and she was planne d for emergent hemodialysis. Also, for her bradycardia, her beta blockers were discontinued and she was monitored on telemetry. Cardiology was also consulted. Cardiology made a diagnosis of CHB secon ayden to hyperkalemia. The patient is also on hemodialysis. Her other chronic medical conditions wer e managed while in the hospital and evaluated to be very well controlled. Her acute kidney injury im proved following dialysis and hydration, and creatinine was 1.23 on the day of discharge and potassiu m 5. Her meloxicam, furosemide, spironolactone, hydrochlorothiazide/lisinopril were also held while in hospital. She is to follow up with her primary care physician within 1 week of discharge for repe at labs, after which these medications might be restarted depending on her labs. She also had thromb ocytopenia, unclear etiology, but thought to be likely due to HIT. HIT panel was taken and is pendin g. Platelet count improved before discharge and although she was still thrombocytopenic, there were no signs of acute bleeding. She will follow up with her primary care physician for repeat labs to en sure resolution of thrombocytopenia. DISCHARGE MEDICATIONS: Clonidine 0.1 mg b.i.d., carvedilol 25 mg b.i.d., amitriptyline 100 mg at bed time, Tapazole 5 mg every 2 days, bupropion 150 mg daily, amlodipine 10 mg daily, methimazole 10 mg e very other day, tramadol 50 mg twice a day, tizanidine hydrochloride 4 mg daily, aspirin 81 mg daily. PHYSICAL EXAMINATION: She was examined on the day of discharge. VITAL SIGNS: Temperature 98.6 degree Fahrenheit, pulse rate 71, respiratory rate 20, oxygen saturati on 100% on room air, blood pressure 145/67. GENERAL: Not in acute distress, lying comfortably in bed. HEENT: PERRLA. EOMI. Moist mucous membrane. No oral lesions. NECK: No JVD. Supple. Full range of movement. RESPIRATORY: Vesicular breath sounds bilaterally. No wheezes, rales, or rhonchi. CARDIOVASCULAR: Regular rate and rhythm. S1 and S2 only. No murmurs, rubs, or gallops. GASTROINTESTINAL: Soft, nontender, not distended. Positive bowel sounds. MUSCULOSKELETAL: No edema. Pulses present. NEUROLOGIC: Alert and well oriented with residual right hemiparesis. SKIN: Warm, dry, well perfused. No rashes or lesions. LABORATORY DATA: Sodium 139, potassium 5, chloride 110, carbon dioxide 24, anion gap 10, BUN 20, cre atinine 1.23, glucose 96, calcium 9.2. WBC 4.5, hemoglobin 9.9, platelet count 45. IMAGING: Chest x-ray showed no acute abnormality. CONSULTATIONS: Cardiology, Nephrology, Oncology, and Pulmonology. CONDITION AT DISCHARGE: Stable and improved. DIET: Diabetic, low salt. CARE GOALS: To follow up with her primary care physician within 1 week of discharge. ACTIVITY: To resume as tolerated and as directed by PT/OT. DISCHARGE TIME: 65 minutes including chart review and documentation.
== END 2017-10-25 13:58 | disposition home or self-care (01) | DRG 683 ==
LOC: ERS 17:02 → CCU 19:28 → 2NO 10-23 14:07
PROVIDERS: ADMIT Internal Medicine; ATTEND Internal Medicine
PROC: 06HM33Z Insertion of Infusion Device into Right Femoral Vein, Percutaneous Approach (ICD-10-PCS; principal; 2017-10-21)
PROC: 5A1D70Z Performance of Urinary Filtration, Intermittent, Less than 6 Hours Per Day (ICD-10-PCS; 2017-10-21)
PROC: 06HM33Z Insertion of Infusion Device into Right Femoral Vein, Percutaneous Approach (ICD-10-PCS; 2017-10-21)
DX: N17.9 Acute kidney failure, unspecified (principal); E87.2 Acidosis; D69.6 Thrombocytopenia, unspecified; E11.22 Type 2 diabetes mellitus with diabetic chronic kidney disease; E87.5 Hyperkalemia; I69.351 Hemiplegia and hemiparesis following cerebral infarction affecting right dominant side; N18.3 Chronic kidney disease, stage 3 (moderate); I12.9 Hypertensive chronic kidney disease with stage 1 through stage 4 chronic kidney disease, or unspecified chronic kidney disease; R00.1 Bradycardia, unspecified; D64.9 Anemia, unspecified; B19.20 Unspecified viral hepatitis C without hepatic coma; E03.9 Hypothyroidism, unspecified; I25.10 Atherosclerotic heart disease of native coronary artery without angina pectoris; I45.5 Other specified heart block; M54.9 Dorsalgia, unspecified; G89.29 Other chronic pain; Z87.891 Personal history of nicotine dependence; Z79.82 Long term (current) use of aspirin; Z79.899 Other long term (current) drug therapy; Z86.73 Personal history of transient ischemic attack (TIA), and cerebral infarction without residual deficits
CPT/HCPCS: 36415; 36416; 71045; 80048; 80053; 82542; 82553; 82805; 83605; 83735; 84100; 84439; 84443; 84484; 85025; 87340; 90935; 93005; 93306; 94640; 94644; 96361; 96374; 96375; A4216; C1751; G0257; G8978-GP-CK; G8979-GP-CI; J0461; J1644; J1815; J7611; Q0162

== ENCOUNTER 2018-10-29 16:02 | Observation (INO) | payer MEDICARE, MEDICAID ==
[2018-10-29] MEDS ORDERED: Metoclopramide HCl 10 MG/2 ML VIAL ONE (16:52)
[2018-10-29] MEDS ORDERED: diphenhydrAMINE 50 MG/ML VIAL ONE (16:52)
[2018-10-29 17:10] LABS: #Eosinphils 0.1 thou/uL (0.0-0.7); #Lymphocytes 1.4 thou/uL (1.20-3.40); #Monocytes 0.8 thou/uL (0.11-0.59); #Neutrophils 4.9 thou/uL (1.40-6.50); %Basophils 0.6 % (0.0-1.0); %Eosinophils 1.3 % (0.0-10.0); %Lymphocytes 19.9 % (21.0-51.0); %Neutrophils 67.3 % (42.0-75.0); Hemoglobin 12.7 g/dL (12.0-16.0); Mean Corpuscular HGB CONC 32.3 g/dL (32.0-36.0); Mean Corpuscular Hemoglobin 29.3 pg (27.0-31.0); Mean Corpuscular Volume 90.9 fL (78.0-98.0); Mean Platelet Volume 11.4 fL (7.4-10.4); PTT 33.8 SEC (22.9-36.1); Platelet Count 91 thou/uL (130-400); Prothrombin Time 13.6 SEC (12.0-14.7); RBC Distribution Width 12.8 % (11.5-14.5); Red Blood Cell (RBC) Count 4.34 mill/uL (4.20-5.40); White Blood Cell (WBC) Count 7.2 thou/uL (4.8-10.8)
[2018-10-29 17:33] LABS: ALT (SGPT) 38 U/L (8-55); AST (SGOT) 23 U/L (5-34); Albumin 4.1 g/dL (3.4-4.8); Alkaline Phosphatase 83 U/L (40-150); Anion Gap 14 mmol/L (10-20); BUN (Urea Nitrogen) 18 mg/dL (9.8-20.1); Bilirubin, Total 0.5 mg/dL (0.2-1.2); Calc. Creatinine Clearance 0 mL/min (70-130); Calcium 9.3 mg/dL (7.8-10.44); Carbon Dioxide 23 mmol/L (23-31); Chloride 107 mmol/L (98-107); Estimated GFR-MDRD 71; Glucose 93 mg/dL (80-115); Protein, Total 7.1 g/dL (6.0-8.3); Sodium 140 mmol/L (136-145)
--- NOTE | 2018-10-29 18:30 | CT ---
CT BRAIN WITHOUT CONTRAST 10/29/18 HISTORY: Headache. FINDINGS: Comparison made with the exam of 09/14/17. Changes of chronic small vessel ischemic disease and old infarctions are again seen. No evidence of a cute infarct, hemorrhage, midline shift, or abnormal extra-axial fluid collections are noted. The keven tricular size is appropriate and the basilar cisterns patent. The bony calvarium is intact. The visua lized paranasal sinuses and mastoid air cells are well aerated. IMPRESSION: No CT evidence of acute intracranial process. POS: [facility]
[2018-10-29] MEDS ORDERED: Acetaminophen 325 MG TAB PO PRN (21:06)
[2018-10-29] MEDS ORDERED: Ondansetron ODT 4 MG TAB PO PRN (21:06)
[2018-10-29] MEDS ORDERED: Ondansetron PF 4 MG/2 ML Vial IVP PRN (21:06)
[2018-10-29 22:28] VITALS: BMI 30.4
--- NOTE | 2018-10-29 23:11 | HP ---
PRIMARY CARE PHYSICIAN: CODE STATUS: Full code. TIME OF EVALUATION: 7:50 p.m. CHIEF COMPLAINT: Headache. HISTORY OF PRESENT ILLNESS: This is a 63-year-old female patient with past medical history of diabetes, hypertension, history of stroke with residual right-sided deficit, hep C that was treated, came to hospital after having severe headache. The patient reported the headache has been going on for the past 2 months and today was so severe that she could not handle it, was 10/10, with no clear triggers, no alleviating factors, reported that the headache also goes down to her right shoulder, which she feels she has some numbness, symptoms were moderate, reports intensity of 5/10. REVIEW OF SYSTEMS: CONSTITUTIONAL: No fever, chills, or generalized weakness. RESPIRATORY: No cough, sputum production, or shortness of breath. CARDIOVASCULAR: No chest pain, palpitation. GASTROINTESTINAL: No nausea, vomiting, diarrhea, or abdominal pain. ELEVATOR SUPERVISOR: The patient has no dizziness. The patient reported headache as reported in HPI. Feeling lightheaded, right-sided weakness. GENITOURINARY: No burning on urination. EXTREMITIES: No leg swelling. All other systems were reviewed and negative except for the findings mentioned above. PAST MEDICAL HISTORY: As mentioned in HPI. PAST SURGICAL HISTORY: Heart catheterization. FAMILY HISTORY: Reviewed, noncontributory to this case. PSYCHIATRIC HISTORY: Depression. SOCIAL HISTORY: Lives at home. Former tobacco user, quit 2 years ago. No alcohol. No drug use. KNOWN ALLERGIES: No known drug allergies. REPORTED MEDICATIONS: 1. Amlodipine. 2. Aspirin. 3. Carvedilol. 4. Clonidine. 5. Furosemide. 6. Potassium chloride. 7. Bupropion. 8. Methimazole. 9. Lisinopril. 10. Hydrochlorothiazide. 11. Spironolactone. 12. Meloxicam. PHYSICAL EXAMINATION: VITAL SIGNS: On presentation, blood pressure 192/81 with heart rate 60, respiratory rate 18, and temperature 98.1. GENERAL APPEARANCE: The patient is alert, oriented, not in acute distress. HEENT: Eyes, normal conjunctivae. Moist oral mucosa. Anicteric. No JVD. RESPIRATORY: Bilateral air entry. No rales. No wheezes. Symmetric expansion. CARDIOVASCULAR: Normal rate. Regular rhythm. No murmurs. No gallops. No edema. The patient is hypertensive. ABDOMEN: Soft. Normal bowel sounds. MUSCULOSKELETAL: She has baseline range of motion and strength. No tenderness. SKIN: Warm, intact. No pallor. No rash. No redness. Peripheral pulses are present. Capillary refill seems to be intact. NEUROLOGIC: The patient has right-sided weakness that is caused from previous stroke. No new deficit. Baseline speech. Cranial nerves seems to be intact. PSYCHIATRIC: The patient is in good mood. No anxiety. Optimal judgment. IMAGING STUDIES: EKG was reviewed, the patient has normal sinus rhythm with a rate of 61, MT 122, QRS 96, QT corrected 440. No significant abnormalities. CT head was done, no CT evidence of any acute intracranial process. LABORATORY DATA: Labs were reviewed. The patient has a white count 7.2, hemoglobin 12.7, MCV 90.9, and platelet count 91. Coagulation; PT 13.6, INR 1.0, PTT 33.8. Chemistry; sodium 140, potassium 4.0, chloride 107, carbon dioxide 23, anion gap 14, BUN 18, creatinine 0.95, GFR 71, glucose 93, and calcium 9.3. LFTs were negative. Troponin was negative. Albumin 4.1. ASSESSMENT AND PLAN: The patient will be placed in the hospital with following medical problems: 1. Possible transient ischemic attack. The patient has some complaint of right shoulder numbness, associated with headache. Symptoms have been on and off, and today it has gotten worse. We will do a stroke protocol. We will place in a stroke unit. We will consult Neurology. We will do MRI, vascular and carotid Doppler. Echo was done recently on the . 2. Uncontrolled hypertension. The patient presented with systolic blood pressure in the 190s. We will allow permissive hypertension due to new neurological changes. We will monitor, this will need to be readdressed in the morning. 3. Controlled diabetes, reconcile home medications, adjust treatment as needed. 4. Deep venous thrombosis prophylaxis. 5. History of depression. This problem is controlled. No need for any acute intervention. Job ID: [id number] [facility]
[2018-10-30 05:45] LABS: Anion Gap 11 mmol/L (10-20); BUN (Urea Nitrogen) 14 mg/dL (9.8-20.1); Calc. Creatinine Clearance 96 mL/min (70-130); Calcium 9.1 mg/dL (7.8-10.44); Carbon Dioxide 24 mmol/L (23-31); Cardiac Risk 3.2 (Less than 4.5); Chloride 109 mmol/L (98-107); Cholesterol 133 mg/dl (< 200 Desired); Estimated GFR-MDRD 86; Glucose 94 mg/dL (80-115); HDL Cholesterol 42 mg/dL (>60 Neg Risk); LDL Cholesterol, Calculated 80 mg/dL; Potassium 3.9 mmol/L (3.5-5.1); Sodium 140 mmol/L (136-145); Triglycerides 56 mg/dL (Less than 150)
[2018-10-30 05:48] LABS: #Eosinphils 0.1 thou/uL (0.0-0.7); #Lymphocytes 1.2 thou/uL (1.20-3.40); #Monocytes 0.7 thou/uL (0.11-0.59); %Basophils 0.5 % (0.0-1.0); %Eosinophils 1.1 % (0.0-10.0); %Lymphocytes 19.7 % (21.0-51.0); %Monocytes 11.5 % (0.0-10.0); %Neutrophils 67.2 % (42.0-75.0); Hemoglobin 11.8 g/dL (12.0-16.0); Mean Corpuscular Hemoglobin 29.6 pg (27.0-31.0); Mean Corpuscular Volume 92.5 fL (78.0-98.0); Mean Platelet Volume 12.1 fL (7.4-10.4); Platelet Count 78 thou/uL (130-400); RBC Distribution Width 12.7 % (11.5-14.5); Red Blood Cell (RBC) Count 3.97 mill/uL (4.20-5.40); White Blood Cell (WBC) Count 5.9 thou/uL (4.8-10.8)
[2018-10-30] MEDS ORDERED: Methimazole 10 MG TAB PO SCH (07:30)
[2018-10-30] MEDS: cloNIDine 0.1 MG TAB PO SCH ×2 (08:43→21:48)
[2018-10-30] MEDS: Enoxaparin Sodium 40 MG/0.4 ML SYRINGE SC SCH (08:44)
[2018-10-30] MEDS: Bupropion 150 MG SR TAB PO SCH (08:44)
[2018-10-30] MEDS: hydrALAZINE 25 MG TAB PO SCH ×3 (08:45→21:49)
[2018-10-30] MEDS: Lisinopril 10 MG TAB PO SCH (08:46)
[2018-10-30] MEDS: traMADol HCl 50 MG TAB PO SCH ×2 (08:46→21:50)
[2018-10-30] MEDS: Amlodipine 10 MG TAB PO SCH (08:47)
[2018-10-30] MEDS: Carvedilol 25 MG TAB PO SCH ×2 (08:48→21:48)
[2018-10-30] MEDS: Aspirin 81 mg Enteric Coated Tablet PO SCH (08:48)
--- NOTE | 2018-10-30 09:33 | ULT ---
Carotid Doppler: Ultrasound and Doppler studies performed on the extracranial carotid arteries. Color Doppler, spectral analysis, and velocity recordings obtained. INDICATIONS: TIA FINDINGS: Ultrasound images show no significant echogenic plaque. Minimal intimal thickening. Velocit y recordings are normal bilaterally. No evidence of stenosis. Vertebral show antegrade flow. IMPRESSION: 1. No significant echogenic plaque 2. No evidence of stenosis
--- NOTE | 2018-10-30 10:27 | PDOC.PN ---
- Subjective Encounter Start Date: 10/30/18 Encounter Start Time: 09:40 -: old records requested/rev Patient seen and examined. No new complaints. No overnight events - Objective Resuscitation Status - Order Detail: 10/29/18 21:06 Resuscitation Status Routine Resuscitation Status: FULL: Full Resuscitation MAR Reviewed: Yes Vital Signs & Weight: Vital Signs (12 hours) Temp Pulse Resp BP BP Pulse Ox 10/30/18 08:47 72 10/30/18 08:45 72 190/84 H 10/30/18 08:43 190/84 H 10/30/18 08:06 97.2 F L 72 16 190/84 H 99 10/30/18 03:33 98.2 F 71 16 183/80 H 94 L 10/29/18 23:37 98.7 F 71 12 154/66 H 97 Weight Weight 194 lb I&O: 10/29/18 10/30/18 10/31/18 06:59 06:59 06:59 Intake Total 70 Balance 70 Result Diagrams: 10/30/18 04:35 10/30/18 04:35 Additional Labs: Accuchecks 10/30/18 10/29/18 05:57 22:50 POC Glucose 98 202 H Phys Exam - Physical Examination Constitutional: NAD HEENT: PERRLA, moist MMs, sclera anicteric Neck: no JVD, supple Respiratory: no wheezing, no rales, no rhonchi Cardiovascular: RRR, no significant murmur, no rub Gastrointestinal: soft, non-tender, no distention, positive bowel sounds Musculoskeletal: no edema, pulses present Neurological: moves all 4 limbs Lymphatic: no nodes Psychiatric: normal affect Skin: no rash, normal turgor Dx/Plan (1) TIA (transient ischemic attack) Code(s): G45.9 - TRANSIENT CEREBRAL ISCHEMIC ATTACK, UNSPECIFIED Status: Acute (2) Anxiety and depression Code(s): F41.9 - ANXIETY DISORDER, UNSPECIFIED; F32.9 - MAJOR DEPRESSIVE DISORDER, SINGLE EPISODE, UNSPECIFIED Status: Chronic (3) Chronic anemia Code(s): D64.9 - ANEMIA, UNSPECIFIED Status: Chronic (4) DM2 (diabetes mellitus, type 2) Status: Chronic Qualifiers: Comment: (5) H/O: CVA (cerebrovascular accident) Code(s): Z86.73 - PRSNL HX OF TIA (TIA), AND CEREB INFRC W/O RESID DEFICITS Status: Chronic Comment: Stable. She has residual right hemiparesis (6) HTN (hypertension) Code(s): I10 - ESSENTIAL (PRIMARY) HYPERTENSION Status: Chronic Qualifiers: Comment: (7) Hyperthyroidism Code(s): E05.90 - THYROTOXICOSIS, UNSP WITHOUT THYROTOXIC CRISIS OR STORM Status: Chronic Comment: (8) Obesity (BMI 30.0-34.9) Code(s): E66.9 - OBESITY, UNSPECIFIED Status: Chronic (9) Thrombocytopenia Code(s): D69.6 - THROMBOCYTOPENIA, UNSPECIFIED Status: Chronic - Plan cont current plan of care * MRI and echo pending * neurology will see her * continue current medical treatment * symptomatic treatment. Review of Systems - Review of Systems ENT: negative: Ear Pain, Ear Discharge, Nose Pain, Nose Discharge, Nose Congestion, Mouth Pain, Mouth Swelling, Throat Pain, Throat Swelling, Other Respiratory: negative: Cough, Dry, Shortness of Breath, Hemoptysis, SOB with Excertion, Pleuritic Pain, Sputum, Wheezing Cardiovascular: negative: chest pain, palpitations, orthopnea, paroxysmal nocturnal dyspnea, edema, light headedness, other Gastrointestinal: negative: Nausea, Vomiting, Abdominal Pain, Diarrhea, Constipation, Melena, Hematochezia, Other Genitourinary: negative: Dysuria, Frequency, Incontinence, Hematuria, Retention , Other Musculoskeletal: negative: Neck Pain, Shoulder Pain, Arm Pain, Back Pain, Hand Pain, Leg Pain, Foot Pain, Other - Medications/Allergies Allergies/Adverse Reactions: Allergies Allergy/AdvReac Type Severity Reaction Status Date / Time No Known Drug Allergies Allergy Verified 10/21/17 18:34 Medications: Current Medications Acetaminophen (Tylenol) 650 mg PO Q4H PRN PRN Reason: Headache/Fever/Mild Pain (1-3) Amlodipine Besylate (Norvasc) 5 mg PO DAILY [facility] Last Admin: 10/30/18 08:47 Dose: 5 mg Aspirin (Ecotrin) 81 mg PO DAILY [facility] Last Admin: 10/30/18 08:48 Dose: 81 mg Bupropion HCl (Wellbutrin Sr) 150 mg PO DAILY [facility] Last Admin: 10/30/18 08:44 Dose: 150 mg Carvedilol (Coreg) 25 mg PO BID [facility] Last Admin: 10/30/18 08:48 Dose: 25 mg Clonidine (Catapres) 0.1 mg PO BID [facility] Last Admin: 10/30/18 08:43 Dose: 0.1 mg Enoxaparin Sodium (Lovenox) 40 mg SC 0900 [facility] Last Admin: 10/30/18 08:44 Dose: Not Given Hydralazine HCl (Apresoline) 100 mg PO TID [facility] Last Admin: 10/30/18 08:45 Dose: 100 mg Lisinopril (Zestril) 10 mg PO DAILY [facility] Last Admin: 10/30/18 08:46 Dose: 10 mg Methimazole (Tapazole) 10 mg PO Q2DAYS [facility] Last Admin: 10/30/18 08:44 Dose: 10 mg Methimazole () 5 mg PO Q2D [facility] Ondansetron HCl (Zofran Odt) 4 mg PO Q6H PRN PRN Reason: Nausea/Vomiting Ondansetron HCl (Zofran) 4 mg IVP Q6H PRN PRN Reason: Nausea/Vomiting Sodium Chloride (Flush - Normal Saline) 10 ml IVF PRN PRN PRN Reason: Saline Flush Last Admin: 10/30/18 08:49 Dose: 10 ml Tramadol HCl (Ultram) 50 mg PO BID [facility] Last Admin: 10/30/18 08:46 Dose: 50 mg Trazodone HCl (Desyrel) 100 mg PO [facility]
--- NOTE | 2018-10-30 12:05 | MRI ---
MRI BRAIN WITHOUT CONTRAST: Date: 10/30/18 Multiplanar, multisequential imaging of brain obtained. INDICATION: Possible stroke. FINDINGS: Moderately severe chronic ischemic white matter changes are seen on FLAIR sequence. There is no evidence of restricted diffusion. No acute infarct. Old lacunar infarct in the left basal ganglia. Intracranial internal carotid arteries and proximal cerebral arteries show flow-voids. IMPRESSION: Moderate to severe chronic ischemic white matter changes. Old lacunar infarct in the left basal gangl ia. No acute infarct identified. POS: OFF
--- NOTE | 2018-10-30 20:42 | CON ---
DATE OF CONSULTATION: 10/30/2018 CHIEF COMPLAINT: Dysarthria. HISTORY OF PRESENT ILLNESS: The patient is a 63-year-old lady with prior history of stroke. She presents with history of pressure in the right side of her head for at least a month and she feels that this pressure goes across her forehead. There is no history of weakness. She has residual right-sided weakness from the old CVA. There has been no history of change in vision or any sensory symptoms. PREVIOUS MEDICAL HISTORY: The patient has history of prior CVA and labile hypertension, more so in the past few weeks, and she has remote history of congestive heart failure and renal failure. PAST SURGICAL HISTORY: None. SOCIAL HISTORY: She used to smoke until 3 years ago and she has stopped smoking and she does not drink. No drug use. She lives with her family. ALLERGIES: NO KNOWN DRUG ALLERGIES. FAMILY HISTORY: Father , but she does not know much about his medical history. Mother of congestive heart failure 5-6 months ago. HOME MEDICATIONS: Include; 1. Amlodipine. 2. Aspirin. 3. Carvedilol. 4. Clonidine. 5. Furosemide. 6. Potassium chloride. 7. Bupropion. 8. Methimazole. 9. Lisinopril. 10. Hydrochlorothiazide. 11. Spironolactone. 12. Meloxicam. REVIEW OF SYSTEMS: PULMONARY: Negative for shortness of breath or cough. CARDIOVASCULAR: Negative for chest pain or palpitations. GASTROINTESTINAL: Negative for diarrhea, vomiting, or nausea. GENITOURINARY: Negative for bladder dysfunction. HEMATOLOGIC: Negative for bleeding diathesis or platelet dysfunction. ORTHOPEDIC: Negative. NEUROLOGICAL: Positive for old CVA and pressure sensation in the head. LABORATORY WORKUP: White count 5.9, hemoglobin 11.8, hematocrit 36.7, platelets 78. Coagulation; PT 13.6, INR 1.0, PTT 33.8. Chemistry; sodium 140, potassium 3.9, chloride 109, bicarb 24, BUN 14, creatinine 0.81, glucose is 94. Lipid profile is within normal limits. Her MRI of the brain was just completed this morning and it showed moderate to severe chronic white matter ischemic changes. Old lacunar infarct in the left basal ganglia. No acute infarct was identified. Her carotid Doppler study was negative for any evidence of stenosis. PHYSICAL EXAMINATION: VITAL SIGNS: Blood pressure was 190/84, pulse 72, temperature 98.5. GENERAL APPEARANCE: Well-built, well-nourished lady, who seems comfortable, very cooperative in bed. CHEST: Clear vesicular breathing. CARDIOVASCULAR: S1 and S2 heard. No murmurs. ABDOMEN: Soft and nontender. No organomegaly noted. NEUROLOGICAL: Higher intellectual function. Normal orientation to time, place, and person and appropriate conversation. Cranial nerve examination; she has cataract in the right eye, therefore abnormal pupil on the right side and extraocular movements are normal. Visual bowers normal to confrontation method. Normal sensation of face bilaterally. Mild facial droop on the left side. Normal hearing bilaterally. Tongue midline. No atrophy noted. Normal elevation of palate. Motor; bulk normal, tone normal. Strength 5/5 on the left side. Right-sided strength was 3/5 proximal, distal 3 to 4/5. Muscle groups tested are deltoid, biceps, triceps, wrist extension and flexion, finger extension and flexion bilaterally. Deep tendon reflexes 3+ bilaterally. Cerebellar examination, she had incoordination on the right side. Sensory examination, decreased sensation on the right side for touch and involuntary movement. She had a rubral tremor in the right upper extremity. IMPRESSION: The patient is a 63-year-old lady with history of old stroke and pressure sensation in the head, which is what brought her to the hospital. Her current examination shows residual effects from the old stroke including rubral tremor in the right upper extremity and incoordination on the right side along with diminished sensation and weakness of the right side and dysarthria. All these clinical findings are due to old ischemic infarct and she does not have any acute infarct based on the MRI findings. At this time, she has low platelet count and other medical issues which need to be investigated. From a neurological standpoint, please continue to monitor this patient. I do not know if aspirin is appropriate for her due to low platelets. Please review that with floral design teacher air conditioning insulation installer, see her as needed. Job ID: [id number]
[2018-10-31] MEDS ORDERED: Methimazole 5 MG TAB PO SCH (07:30)
[2018-10-31] MEDS: hydrALAZINE 25 MG TAB PO SCH (07:35)
[2018-10-31] MEDS: Aspirin 81 mg Enteric Coated Tablet PO SCH (07:36)
[2018-10-31] MEDS: Carvedilol 25 MG TAB PO SCH (07:36)
[2018-10-31] MEDS: Amlodipine 10 MG TAB PO SCH (07:36)
[2018-10-31] MEDS: cloNIDine 0.1 MG TAB PO SCH (07:36)
[2018-10-31] MEDS: Lisinopril 10 MG TAB PO SCH (07:37)
[2018-10-31] MEDS: traMADol HCl 50 MG TAB PO SCH (07:37)
[2018-10-31] MEDS: Bupropion 150 MG SR TAB PO SCH (07:38)
[2018-10-31 08:23] VITALS: BP 155/69; TEMP 98.3
[2018-10-31] MEDS: Enoxaparin Sodium 40 MG/0.4 ML SYRINGE SC SCH (08:28)
--- NOTE | 2018-10-31 09:59 | PDOC.PN ---
- Subjective Encounter Start Date: 10/31/18 Encounter Start Time: 09:40 Patient seen and examined. No new complaints. No overnight events - Objective Resuscitation Status - Order Detail: 10/29/18 21:06 Resuscitation Status Routine Resuscitation Status: FULL: Full Resuscitation MAR Reviewed: Yes Vital Signs & Weight: Vital Signs (12 hours) Temp Pulse Resp BP Pulse Ox 10/31/18 07:58 98.3 F 63 16 155/69 H 96 10/31/18 07:36 64 10/31/18 07:35 64 10/31/18 04:00 98.0 F 64 16 168/72 H 100 10/30/18 23:23 98.1 F 81 16 124/58 L 95 Weight Weight 194 lb I&O: 10/30/18 10/31/18 11/01/18 06:59 06:59 06:59 Intake Total 70 1550 Output Total 1300 Balance 70 250 Result Diagrams: 10/30/18 04:35 10/30/18 04:35 Additional Labs: Accuchecks 10/31/18 10/30/18 10/30/18 05:49 20:50 16:50 POC Glucose 106 111 H 106 10/30/18 11:56 POC Glucose 104 Phys Exam - Physical Examination Constitutional: NAD HEENT: PERRLA, moist MMs, sclera anicteric Neck: no JVD, supple Respiratory: no wheezing, no rales, no rhonchi Cardiovascular: RRR, no significant murmur, no rub Gastrointestinal: soft, non-tender, no distention, positive bowel sounds Musculoskeletal: no edema, pulses present Neurological: moves all 4 limbs Lymphatic: no nodes Psychiatric: normal affect, A&O x 3 Skin: no rash, normal turgor Dx/Plan (1) TIA (transient ischemic attack) Code(s): G45.9 - TRANSIENT CEREBRAL ISCHEMIC ATTACK, UNSPECIFIED Status: Acute (2) Anxiety and depression Code(s): F41.9 - ANXIETY DISORDER, UNSPECIFIED; F32.9 - MAJOR DEPRESSIVE DISORDER, SINGLE EPISODE, UNSPECIFIED Status: Chronic (3) Chronic anemia Code(s): D64.9 - ANEMIA, UNSPECIFIED Status: Chronic (4) DM2 (diabetes mellitus, type 2) Status: Chronic Qualifiers: Comment: (5) H/O: CVA (cerebrovascular accident) Code(s): Z86.73 - PRSNL HX OF TIA (TIA), AND CEREB INFRC W/O RESID DEFICITS Status: Chronic Comment: Stable. She has residual right hemiparesis (6) HTN (hypertension) Code(s): I10 - ESSENTIAL (PRIMARY) HYPERTENSION Status: Chronic Qualifiers: Comment: (7) Hyperthyroidism Code(s): E05.90 - THYROTOXICOSIS, UNSP WITHOUT THYROTOXIC CRISIS OR STORM Status: Chronic Comment: (8) Obesity (BMI 30.0-34.9) Code(s): E66.9 - OBESITY, UNSPECIFIED Status: Chronic (9) Thrombocytopenia Code(s): D69.6 - THROMBOCYTOPENIA, UNSPECIFIED Status: Chronic - Plan cont current plan of care * continue current medical treatment * symptomatic treatment * see discharge sedrick. Review of Systems - Review of Systems ENT: negative: Ear Pain, Ear Discharge, Nose Pain, Nose Discharge, Nose Congestion, Mouth Pain, Mouth Swelling, Throat Pain, Throat Swelling, Other Respiratory: negative: Cough, Dry, Shortness of Breath, Hemoptysis, SOB with Excertion, Pleuritic Pain, Sputum, Wheezing Cardiovascular: negative: chest pain, palpitations, orthopnea, paroxysmal nocturnal dyspnea, edema, light headedness, other Gastrointestinal: negative: Nausea, Vomiting, Abdominal Pain, Diarrhea, Constipation, Melena, Hematochezia, Other Genitourinary: negative: Dysuria, Frequency, Incontinence, Hematuria, Retention , Other Musculoskeletal: negative: Neck Pain, Shoulder Pain, Arm Pain, Back Pain, Hand Pain, Leg Pain, Foot Pain, Other - Medications/Allergies Allergies/Adverse Reactions: Allergies Allergy/AdvReac Type Severity Reaction Status Date / Time No Known Drug Allergies Allergy Verified 10/21/17 18:34 Medications: Current Medications Acetaminophen (Tylenol) 650 mg PO Q4H PRN PRN Reason: Headache/Fever/Mild Pain (1-3) Amlodipine Besylate (Norvasc) 5 mg PO DAILY [facility] Last Admin: 10/31/18 07:36 Dose: 5 mg Aspirin (Ecotrin) 81 mg PO DAILY [facility] Last Admin: 10/31/18 07:36 Dose: 81 mg Bupropion HCl (Wellbutrin Sr) 150 mg PO DAILY [facility] Last Admin: 10/31/18 07:38 Dose: 150 mg Carvedilol (Coreg) 25 mg PO BID [facility] Last Admin: 10/31/18 07:36 Dose: 25 mg Clonidine (Catapres) 0.1 mg PO BID [facility] Last Admin: 10/31/18 07:36 Dose: 0.1 mg Enoxaparin Sodium (Lovenox) 40 mg SC 0900 [facility] Last Admin: 10/31/18 08:28 Dose: Not Given Hydralazine HCl (Apresoline) 100 mg PO TID [facility] Last Admin: 10/31/18 07:35 Dose: 100 mg Lisinopril (Zestril) 10 mg PO DAILY [facility] Last Admin: 10/31/18 07:37 Dose: 10 mg Methimazole (Tapazole) 10 mg PO Q2DAYS [facility] Last Admin: 10/30/18 08:44 Dose: 10 mg Methimazole () 5 mg PO Q2D [facility] Last Admin: 10/31/18 07:34 Dose: 5 mg Ondansetron HCl (Zofran Odt) 4 mg PO Q6H PRN PRN Reason: Nausea/Vomiting Ondansetron HCl (Zofran) 4 mg IVP Q6H PRN PRN Reason: Nausea/Vomiting Sodium Chloride (Flush - Normal Saline) 10 ml IVF PRN PRN PRN Reason: Saline Flush Last Admin: 10/30/18 08:49 Dose: 10 ml Tramadol HCl (Ultram) 50 mg PO BID [facility] Last Admin: 10/31/18 07:37 Dose: 50 mg Trazodone HCl (Desyrel) 100 mg PO HS [facility] Last Admin: 10/30/18 21:48 Dose: 100 mg
--- NOTE | 2018-10-31 10:13 | DIS ---
DATE OF ADMISSION: 10/29/2018 DATE OF DISCHARGE: 10/31/2018 PRIMARY CARE PHYSICIAN: Dr. Dixon Rust. DISCHARGE DISPOSITION: Home. PRIMARY DISCHARGE DIAGNOSIS: Ruled out stroke, probably transient ischemic attack. SECONDARY DISCHARGE DIAGNOSES: Thrombocytopenia, obesity with BMI 30, hyperthyroidism, hypertension, history of cerebrovascular accident with residual weakness, diabetes type 2, chronic anemia, anxiety and depression. PRIMARY PROCEDURE/OPERATION: None. RADIOLOGICAL INVESTIGATION: CT of brain, negative. Carotid Doppler negative. Echocardiography, normal EF. MRI of brain, old lacunar stroke, no new stroke. SIGNIFICANT LABORATORY DATA: Hemoglobin 11.8. INR 1.0. Creatinine 0.81. LDL 80. DISCHARGE MEDICATIONS: 1. Methimazole 10 mg p.o. every other day. 2. Norvasc 5 mg p.o. daily. 3. Aspirin 81 mg daily. 4. Wellbutrin SR 150 mg p.o. daily. 5. Coreg 25 mg p.o. b.i.d. 6. Clonidine 0.1 mg b.i.d. 7. Hydralazine 100 mg t.i.d. 8. Lisinopril 10 mg p.o. daily. 9. Methimazole 5 mg every other day. 10. Tramadol 50 mg p.o. b.i.d. 11. Trazodone 100 mg p.o. at bedtime. 12. Lipitor 20 mg p.o. daily. CONTRAINDICATION: None. CODE STATUS: Full code. INPATIENT IT SUPPORT TECHNICIAN: Dr. Ashish Wadsworth. TEST RESULT PENDING ON DISCHARGE: None. ALLERGIES: NO KNOWN DRUG ALLERGIES. DISCHARGE PLAN: Posthospital, the patient will follow up with primary care physician. HOSPITAL COURSE: A 63-year-old female with above-mentioned medical problem, who was admitted by Dr. Buenrostro. Please see his H and P for further details. The patient was having increasing weakness on the right side, which was related with her previous stroke, but the patient subjectively felt more weak and that is why she was admitted to the hospital for rule out cerebrovascular accident. CT of brain initially negative. Carotid Doppler came back negative. MRI of brain did not show any new stroke. Echocardiography was unremarkable. Neurology saw this patient and they were also thinking that this patient's weakness is increased from residual weakness. There was no new stroke on her, and she will continue all her previous medication. I have seen and examined the patient bedside today. Her examination is back to normal and baseline level. Cardiac and lung examination are normal. Vitals are stable. The patient wants to go home today. She will continue all her previous medication. On discharge, we added Lipitor 20 mg p.o. at bedtime for her previous stroke. Otherwise, she will continue all her previous medication. Job ID: [id number]
== END 2018-10-31 10:53 | disposition home or self-care (01) ==
LOC: ERS 16:02 → 2SW 19:00
PROVIDERS: ADMIT Emergency Medicine; ATTEND Emergency Medicine
DX: R51 Headache (principal); I69.351 Hemiplegia and hemiparesis following cerebral infarction affecting right dominant side; F32.9 Major depressive disorder, single episode, unspecified; F41.9 Anxiety disorder, unspecified; E05.90 Thyrotoxicosis, unspecified without thyrotoxic crisis or storm; D69.6 Thrombocytopenia, unspecified; I13.0 Hypertensive heart and chronic kidney disease with heart failure and stage 1 through stage 4 chronic kidney disease, or unspecified chronic kidney disease; E11.22 Type 2 diabetes mellitus with diabetic chronic kidney disease; N18.9 Chronic kidney disease, unspecified; I50.9 Heart failure, unspecified; D63.1 Anemia in chronic kidney disease; E66.9 Obesity, unspecified; Z68.30 Body mass index [BMI] 30.0-30.9, adult; Z87.891 Personal history of nicotine dependence; Z79.82 Long term (current) use of aspirin; Z79.899 Other long term (current) drug therapy
CPT/HCPCS: 70450; 70551; 80048; 80053; 80061; 82962 ×3; 84484; 85025 ×2; 85610; 85730; 93005; 93306; 93880; 96365; 96375; 99285; G0378 ×2; 36415; 36416; J1200; J1650; J2765